=== PATIENT | female | born 1990 | race Caucasian/White ===

== ENCOUNTER 2022-06-14 08:37 | Emergency (ER) | payer OTHER, SELFPAY ==
[2022-06-14 08:49] VITALS: BP 97/39; PULSE 90; RESP 18; TEMP 36.6; O2SAT 98
--- NOTE | 2022-06-14 09:27 | ED.URI ---
HPI - URI/Sore Throat General Chief Complaint: Upper Respiratory Infection Stated Complaint: Ear Pain/Congestion/Cough Time Seen by Provider: 06/14/22 09:27 Source: patient, RN notes reviewed and old records reviewed Mode of arrival: ambulatory Limitations: no limitations History of Present Illness HPI Narrative: 32-year-old female who presents to [facility] with complaints of 1-1/2-2 weeks duration ear pain, congestion cough with sinus congestion and drainage. Patient reports she is taking DayQuil NyQuil some Tylenol and also Excedrin for her discomfort patient has not been COVID vaccinated nor has she had flu shot, denies any body aches or acute fevers.Patient reports that she has not taken any Claritin, or Zyrtec, or any Mucinex. MD elicited complaint: cough, rhinorrhea, nasal congestion and other (ear pain) Pertinent past history: seasonal allergies Pain scale (0-10): 5 Treatments prior to arrival: acetaminophen and cold medicine Related Data Allergies Allergy/AdvReac Type Severity Reaction Status Date / Time banana Allergy Mild Other Verified 06/14/22 09:16 egg Allergy Mild Other Verified 06/14/22 09:16 Review of Systems Review of Systems: CONSTITUTIONAL: Denies malaise, chills, sweats, or fever. EYES: Denies visual changes, redness, or discharge. ENT: Reports rhinorrhea, congestion, sinus pain, bilateral otalgia, positive sore throat. CARDIOVASCULAR: Denies chest pain, palpitations, or edema. RESPIRATORY: Reports cough.? Denies dyspnea. GASTROINTESTINAL: Denies abdominal pain, nausea, vomiting, diarrhea SKIN: Denies rash or itching. MUSCULOSKELETAL: Denies myalgia. NEUROLOGIC: Denies headache. All systems reviewed & are unremarkable except as noted in HPI and below [facility] Past Medical History Medical History (Updated 06/15/22 @ 00:00 by David Brasher) Seasonal allergies Surgical History Surgical History (Updated 06/14/22 @ 09:40 by Trinity Cordova NP) History of surgical removal of ganglion cyst [place] teeth extracted Social History Social History (Updated 06/14/22 @ 09:39 by Trinity Cordova NP) Smoking status: Current some day smoker Tobacco type: e-cigarettes/vaping Alcohol intake: current Alcohol use details: Social Substance use type: does not use Living arrangements: with family Gender identity (if verbalized by the patient): Female Comments At time of signature, agree with nursing past medical, surgical, social and family history. There is no relevant family history pertinent to the presenting complaint Exam Narrative: GENERAL: Well-appearing, well-nourished, and in no acute distress. HEAD: Normocephalic EYES: PERRLA, conjunctivae clear ENT: Nares clear, turbinates edematous and erythematous, clear discharge. Mucous membranes moist. TM pearly vizcarra with dull light reflex bilaterally; no tragal tenderness. Oropharynx erythematous without lesions. Tonsils red and enlarged and without exudate, no drooling, no hoarseness, no trismus, uvula midline.post nasal drainage NECK: Supple. No lymphadenopathy CHEST: Clear to auscultation, breath sounds equal. No wheezing, rhonchi, rales, or stridor. No respiratory distress, speaks in full sentences.cough noted with SAO2 98% on room air HEART: Regular rate and rhythm. No murmur heard. SKIN: Warm, dry, no rash. NEURO: Alert and oriented x3. PSYCH: Normal mood and affect Course Course Emergency Course: Patient is aware of diagnosis, understands and agrees to treatment plan.? Anticipatory guidance given.? Patient agrees to follow-up as directed and is aware of reasons to seek care at the emergency department. Portions of this record may have been created with voice recognition software Level of Care: Express Care Visit Vital Signs Vital signs: Vital Signs Temperature 36.6 C 06/14/22 08:49 Pulse Rate 90 06/14/22 08:49 Respiratory Rate 18 06/14/22 08:49 Blood Pressure 97/39 L 06/14/22 08:4
== END 2022-06-14 09:55 | disposition home or self-care (01) ==
PROVIDERS: Emergency Provider Registered Nurse
DX: J32.9 Chronic sinusitis, unspecified (principal); J02.9 Acute pharyngitis, unspecified; F17.290 Nicotine dependence, other tobacco product, uncomplicated
CPT/HCPCS: 87081; 87880; 99203; G0463

== ENCOUNTER 2022-09-08 15:40 | Emergency (ER) | payer OTHER, SELFPAY ==
[2022-09-08 15:46] VITALS: BP 125/79; PULSE 89; RESP 20; TEMP 36.8; O2SAT 96
--- NOTE | 2022-09-08 16:09 | ED.URI ---
HPI - URI/Sore Throat General Chief Complaint: Upper Respiratory Infection Stated Complaint: Cough/Sinus Congestion Time Seen by Provider: 09/08/22 16:09 Source: patient and RN notes reviewed Mode of arrival: ambulatory Limitations: no limitations History of Present Illness HPI Narrative: 32-year-old female presented for complaint of cough and sinus pressure for 3 weeks. Endorses a short improvement last week. She has been using inhaler without significant improvement. Endorses a time she feels shortness of breath and wheezing related to the cough. Also reports rib pain and facial pain when coughing. She denies chest pain, nausea, vomiting, diarrhea, fevers or chills. She denies sick contacts. MD elicited complaint: cough Related Data Allergies Allergy/AdvReac Type Severity Reaction Status Date / Time banana Allergy Mild Other Verified 09/08/22 15:57 egg Allergy Mild Other Verified 09/08/22 15:57 Review of Systems Review of Systems: CONSTITUTIONAL: Denies malaise, chills, sweats, fever EYES: Denies visual changes, redness, or discharge ENT: Reports rhinorrhea, congestion, sinus pain, otalgia CARDIOVASCULAR: Denies chest pain, palpitations, edema RESPIRATORY: Reports cough, dyspnea GASTROINTESTINAL: Denies abdominal pain, nausea, vomiting, diarrhea SKIN: Denies rash or itching MUSCULOSKELETAL: Denies myalgia NEUROLOGIC: Reports headache PMFSH Past Medical History Medical History Seasonal allergies Surgical History Surgical History History of surgical removal of ganglion cyst [place] teeth extracted Social History Social History Smoking status: Current some day smoker Tobacco type: e-cigarettes/vaping Alcohol intake: current Alcohol use details: Social Substance use type: does not use Living arrangements: with family Gender identity (if verbalized by the patient): Female Exam Narrative: GENERAL: mildly Ill-appearing, nontoxic no acute distress. HEAD: Normocephalic EYES: PERRLA, conjunctivae clear ENT: Mucous membranes moist. Maxillary pressure with palpation. TMs pearly vizcarra with dull light reflex bilaterally; no tragal tenderness. Oropharynx erythematous without lesions or exudate NECK: Supple. No lymphadenopathy CHEST: Clear to auscultation, breath sounds equal. No wheezing, rhonchi, rales, or stridor. No respiratory distress, speaks in full sentences. HEART: Regular rate and rhythm. No murmur heard. SKIN: Warm, dry, no rash. NEURO: Alert and oriented x3. PSYCH: Normal mood and affect Course Course Emergency Course: Patient is aware of diagnosis, understands and agrees to treatment plan. Anticipatory guidance given. Patient agrees to follow-up as directed and is aware of reasons to seek care at the emergency department. Portions of this record may have been created with voice recognition software Level of Care: Express Care Visit Vital Signs Vital signs: Vital Signs Temperature 98.2 F 09/08/22 15:46 Pulse Rate 89 09/08/22 15:46 Respiratory Rate 20 09/08/22 15:46 Blood Pressure 125/79 09/08/22 15:46 Pulse Oximetry 96 09/08/22 15:46 Oxygen Delivery Room Air 09/08/22 15:46 Temperature 98.2 F 09/08/22 15:46 Pulse Rate 89 09/08/22 15:46 Respiratory Rate 20 09/08/22 15:46 Blood Pressure 125/79 09/08/22 15:46 Pulse Oximetry 96 09/08/22 15:46 Oxygen Delivery Room Air 09/08/22 15:46 reviewed MDM - URI/Sore Throat MDM Narrative Medical decision making narrative: Advised supportive measures and signs/symptoms to go to the ER. Pt is appropriate for outpt treatment and f/u. Differential Diagnosis Differential diagnosis: Likely upper respiratory infection, sinusitis and viral infection Discharge Plan Discharge Clinical Impression: Upper respiratory infection
== END 2022-09-08 16:20 | disposition home or self-care (01) ==
PROVIDERS: Emergency Provider Nurse Practitioner Family
DX: J06.9 Acute upper respiratory infection, unspecified (principal); F17.290 Nicotine dependence, other tobacco product, uncomplicated
CPT/HCPCS: 99213; G0463

== ENCOUNTER 2023-11-25 14:44 | Outpatient (CLI) | payer OTHER, SELFPAY ==
--- NOTE | ~2023-11-25 | US_ITS ---
EXAMINATION: US OB <=14 wk fetus w TV DATE: 11/25/2023 15:11 INDICATION: Amenorrhea TECHNIQUE: Real-time pelvic ultrasound utilizing both a transvaginal and transabdominal probe was pe rformed. The interpreting radiologist was not present for the study. COMPARISON: None. FINDINGS: The uterus measures 11.5 x 5.6 x 6.9 cm. There is an intrauterine gestational sac. A 6 mm yolk sac a nd pole are identified. The crown rump length measures 1.8 cm, which correlates with an estimat ed gestational age of 8 weeks and 2 days. heart motion is identified measuring 165 beats per mi nute (bpm) by M-mode Doppler. The right ovary measures 3.7 x 2.6 x 3.0 cm. The left ovary measures 3.5 x 2.6 x 2.7 cm. There is no free fluid in the pelvis. IMPRESSION: 1. Single living fetus with heart rate of 165 bpm. 2. Gestational age by ultrasound of 8 weeks 2 day(s) +/- 5 day(s) with ultrasound estimated date of delivery (SONU) of 07/04/2024. Reviewed, dictated and finalized at location A. IMPRESSION: 1. Single living fetus with heart rate of 165 bpm. 2. Gestational age by ultrasound of 8 weeks 2 day(s) +/- 5 day(s) with ultraso und estimated date of delivery (SONU) of 07/04/2024.
== END 2023-11-25 14:45 ==
LOC: MICIMG 14:45
PROVIDERS: PCP Obstetrics & Gynecology; Visit Provider Obstetrics & Gynecology
DX: N91.2 Amenorrhea, unspecified (principal); Z3A.08 8 weeks gestation of pregnancy
CPT/HCPCS: 76801; 76817

== ENCOUNTER 2023-12-04 10:36 | Outpatient (CLI) | payer OTHER, SELFPAY ==
[2023-12-04 12:14] LABS: Basophils Percent Auto 0.4 % (0.2-1.2); Eosinophils Absolute Auto 0.2 K/mm3 (0-0.3); Eosinophils Percent Auto 2.4 % (0-4.4); Hematocrit 42.5 % (37.0-47.0); Hemoglobin 14.3 g/dL (12.0-15.0); Immature Granulocyte Absolute 0.02 K/mm3 (0.00-0.031); Immature Granulocyte Percent A 0.2 % (0-0.5); Lymphocytes Absolute Auto 1.81 K/mm3 (0.9-3.2); Lymphocytes Percent Auto 18.8 % (18.3-44.2); Mean Corpuscular HGB Conc 33.6 g/dl (32-36); Mean Corpuscular Volume 89.1 fl (80-100); Mean Platelet Volume 9.8 fl (7.4-10.4); Monocytes Absolute Auto 0.5 K/mm3 (0.1-0.6); Monocytes Percent Auto 5.1 % (2.6-8.5); Neutrophils Percent Auto 73.1 % (45.5-73.1); Platelet Count Result 291 k/mm3 (150-375); Red Blood Count 4.77 M/mm3 (4.2-5.4); Red Cell Distribution Width 13.1 % (11.5-14.5); White Blood Count 9.6 K/mm3 (4.5-10.0)
[2023-12-04 12:19] LABS: Glucose 1 Hour PP 50gm Dose 88 mg/dL
[2023-12-04 13:05] LABS: Hepatitis B Surface Antigen Negative (Negative); Rubella IgG Antibody 12.2 IU/ML
[2023-12-04 13:10] LABS: HIV 1/2 Ab P24 Ag Result Negative (Negative)
[2023-12-07 11:51] LABS: Rapid Plasma Reagin Non-Reactive (NonReactive)
[2023-12-07 12:02] LABS: CMV IgG Antibody <0.60 U/mL
== END 2023-12-04 10:37 | disposition home or self-care (01) ==
LOC: ANHLAB 10:37
PROVIDERS: PCP Obstetrics & Gynecology; Visit Provider Obstetrics & Gynecology
DX: N91.2 Amenorrhea, unspecified (principal); E66.9 Obesity, unspecified
CPT/HCPCS: 36415; 82947; 84702; 85025; 86592; 86644; 86703; 86747; 86762; 86787; 86850; 86900; 86901; 87086; 87088; 87340; G0432

== ENCOUNTER 2024-04-13 09:16 | Outpatient (CLI) | payer MEDICAID, SELFPAY ==
[2024-04-13 11:18] LABS: Basophils Percent Auto 0.3 % (0.2-1.2); Eosinophils Absolute Auto 0.3 K/mm3 (0-0.3); Eosinophils Percent Auto 2.1 % (0-4.4); Hematocrit 38.6 % (37.0-47.0); Immature Granulocyte Percent A 0.8 % (0-0.5); Lymphocytes Absolute Auto 1.58 K/mm3 (0.9-3.2); Lymphocytes Percent Auto 12.7 % (18.3-44.2); Mean Corpuscular HGB Conc 33.7 g/dl (32-36); Mean Corpuscular Hemoglobin 30.3 pg (26-34); Mean Platelet Volume 10.7 fl (7.4-10.4); Monocytes Absolute Auto 0.5 K/mm3 (0.1-0.6); Neutrophils Percent Auto 80.1 % (45.5-73.1); Platelet Count Result 255 k/mm3 (150-375); Red Blood Count 4.29 M/mm3 (4.2-5.4); Red Cell Distribution Width 13.4 % (11.5-14.5); White Blood Count 12.5 K/mm3 (4.5-10.0)
[2024-04-13 11:38] LABS: Glucose 1 Hour PP 50gm Dose 107 mg/dL
[2024-04-13 12:20] LABS: HIV 1/2 Ab P24 Ag Result Negative (Negative)
[2024-04-13 13:37] LABS: Rapid Plasma Reagin Non-Reactive (NonReactive)
== END 2024-04-13 09:17 | disposition home or self-care (01) ==
LOC: ANHLAB 09:18
PROVIDERS: PCP Physician Assistant; Visit Provider Obstetrics & Gynecology
DX: Z34.90 Encounter for supervision of normal pregnancy, unspecified, unspecified trimester (principal)
CPT/HCPCS: 36415; 82947; 85025; 86592; 86703; G0432

== ENCOUNTER 2024-05-18 10:44 | Outpatient (CLI) | payer OTHER, SELFPAY ==
[2024-05-18 11:07] VITALS: BP 117/88; PULSE 107
[2024-05-18 11:16] VITALS: BP 104/53; PULSE 97
[2024-05-18 11:19] LABS: Basophils Percent Auto 0.3 % (0.2-1.2); Eosinophils Absolute Auto 0.2 K/mm3 (0-0.3); Eosinophils Percent Auto 1.4 % (0-4.4); Hematocrit 38.4 % (37.0-47.0); Immature Granulocyte Percent A 0.7 % (0-0.5); Lymphocytes Absolute Auto 1.71 K/mm3 (0.9-3.2); Mean Corpuscular HGB Conc 33.9 g/dl (32-36); Mean Corpuscular Hemoglobin 30.2 pg (26-34); Mean Corpuscular Volume 89.3 fl (80-100); Mean Platelet Volume 10.6 fl (7.4-10.4); Monocytes Absolute Auto 0.8 K/mm3 (0.1-0.6); Monocytes Percent Auto 5.4 % (2.6-8.5); Neutrophils Absolute Auto 11.4 K/mm3 (1.3-6.7); Neutrophils Percent Auto 80.2 % (45.5-73.1); Platelet Count Result 243 k/mm3 (150-375); Red Cell Distribution Width 13.1 % (11.5-14.5); White Blood Count 14.2 K/mm3 (4.5-10.0)
[2024-05-18 11:28] LABS: Add Urine Microscopic? YES; Alanine Aminotransferase 60 U/L (6-35); Albumin Level 3.6 g/dL (3.5-5.1); Alkaline Phosphatase 159 U/L (38-126); Anion Gap 9 mmol/L (4-12); Appearance Urine Cloudy (Clear); Aspartate Amino Transferase 42 U/L (14-36); Bacteria Urine Rare /hpf; Bilirubin Urine Negative (Negative); Bilirubin,Total 0.3 mg/dL (0.2-1.3); Blood Urea Nitrogen 7 mg/dL (7-17); Blood Urine Negative (Negative); Calcium 8.7 mg/dL (8.4-10.2); Carbon Dioxide 19 mmol/L (22-30); Chloride 105 mmol/L (98-107); Color Urine Yellow (Yellow); Estimated Glomerular Filt Rate > 60; Glucose 103 mg/dL (65-110); Glucose Urine UA Negative (Negative); Ketones Urine Negative (Negative); Leukocyte Esterase Ur 2+ LEU/UL (Negative); Nitrate Urine Negative (Negative); Non Pathogenic Casts 0-2; Potassium 4.1 mmol/L (3.4-5.0); Protein Urine Negative (Negative); RBC Urine 0-2 /hpf (0-2); Sodium 133 mmol/L (137-145); Specific Grav Ur 1.013 (1.001-1.035); Squamous Epithelial Cell Urine Moderate /hpf (Few); Uric Acid 4.1 mg/dL (2.5-7.5); Urobilinogen Urine 0.2 mg/dL (<2.0); WBC Urine 21-50 /hpf (0-3)
[2024-05-18 11:30] VITALS: BP 109/69; PULSE 92
[2024-05-18 11:45] VITALS: BP 117/81; PULSE 97
[2024-05-18 12:00] LABS: Creatinine Urine 75.3 mg/dL; Total Protein Urine Random 6 mg/dL; Ur Ttl Prot Creatinine Ratio 0.08 mg/mg (0-0.20)
[2024-05-18 12:12] VITALS: BP 109/69; PULSE 97
[2024-05-18 12:19] VITALS: BP 117/88; PULSE 97
--- NOTE | 2024-05-18 12:20 | PC.NURSE ---
1211: [facility] OB, Dr. Sorensen in department. RN reviewed patient's blood pressure and lab results. orders to discharge patient home with precautions.
== END 2024-05-18 12:23 ==
LOC: ANHOBOP 10:49 → ANHOBPP 10:50
PROVIDERS: PCP Physician Assistant; Visit Provider Obstetrics & Gynecology
DX: O13.9 Gestational [pregnancy-induced] hypertension without significant proteinuria, unspecified trimester (principal); Z3A.00 Weeks of gestation of pregnancy not specified
CPT/HCPCS: 36415; 59025; 80053; 82570; 84156; 84550; 85025; 99199

== ENCOUNTER 2024-05-26 10:41 | Observation (INO) | payer OTHER, SELFPAY ==
[2024-05-26] VITALS (121 sets, daily range): BP systolic 86–126; BP diastolic 60–105; PULSE 68–115; RESP 16; TEMP 36.3–36.7; O2SAT 95–100; BMI 44.1
--- NOTE | 2024-05-26 10:41 | OBADM ---
This patient, Shaneka Rowe, admitted to the OB room OB Post 115 for observation. Patient/family oriented to hospital policies and general routines including ID bracelet, bed and alarms, visiting hours, pain management, procedures, bathroom and other care routines, personal items, smoking policy, room service/diet, and visiting hours. Patient/Family are encouraged to report perceived risks to care and to ask questions if they do not understand what they are told or what they should do.
[2024-05-26 11:19] LABS: Basophils Percent Auto 0.3 % (0.2-1.2); Eosinophils Absolute Auto 0.1 K/mm3 (0-0.3); Eosinophils Percent Auto 0.9 % (0-4.4); Hematocrit 39.7 % (37.0-47.0); Hemoglobin 13.4 g/dL (12.0-15.0); Immature Granulocyte Absolute 0.14 K/mm3 (0.00-0.031); Lymphocytes Absolute Auto 1.68 K/mm3 (0.9-3.2); Lymphocytes Percent Auto 11.9 % (18.3-44.2); Mean Corpuscular HGB Conc 33.8 g/dl (32-36); Mean Corpuscular Hemoglobin 30.1 pg (26-34); Mean Corpuscular Volume 89.2 fl (80-100); Mean Platelet Volume 11.1 fl (7.4-10.4); Monocytes Absolute Auto 0.7 K/mm3 (0.1-0.6); Neutrophils Absolute Auto 11.4 K/mm3 (1.3-6.7); Neutrophils Percent Auto 80.9 % (45.5-73.1); Platelet Count Result 240 k/mm3 (150-375); Red Blood Count 4.45 M/mm3 (4.2-5.4); Red Cell Distribution Width 12.8 % (11.5-14.5); White Blood Count 14.1 K/mm3 (4.5-10.0)
[2024-05-26 11:27] LABS: Add Urine Microscopic? YES; Appearance Urine Cloudy (Clear); Bacteria Urine Rare /hpf; Bilirubin Urine Negative (Negative); Blood Urine Negative (Negative); Color Urine Dark Yellow (Yellow); Glucose Urine UA Negative (Negative); Ketones Urine Trace mg/dL (Negative); Leukocyte Esterase Ur 2+ LEU/UL (Negative); Nitrate Urine Negative (Negative); Protein Urine Negative (Negative); RBC Urine 0-2 /hpf (0-2); Specific Grav Ur 1.023 (1.001-1.035); Squamous Epithelial Cell Urine Moderate /hpf (Few); pH Urine 5.5 (5.0-9.0)
[2024-05-26 11:30] LABS: Prothrombin Time 13.5 Seconds (11.1-14.7)
[2024-05-26 11:32] LABS: Partial Thromboplastin Time 24.5 Seconds (22.3-36.8)
--- NOTE | 2024-05-26 12:10 | PC.NURSE ---
Order from Dr. Luis received for monitoring to be discontinued.
[2024-05-26 12:15] LABS: Alanine Aminotransferase 161 U/L (6-35); Albumin Level 3.6 g/dL (3.5-5.1); Alkaline Phosphatase 177 U/L (38-126); Anion Gap 7 mmol/L (4-12); Aspartate Amino Transferase 118 U/L (14-36); Bilirubin,Total 0.5 mg/dL (0.2-1.3); Blood Urea Nitrogen 8 mg/dL (7-17); Calcium 9.1 mg/dL (8.4-10.2); Carbon Dioxide 17 mmol/L (22-30); Chloride 109 mmol/L (98-107); Estimated Glomerular Filt Rate > 60; Glucose 110 mg/dL (65-110); Potassium 3.8 mmol/L (3.4-5.0); Sodium 133 mmol/L (137-145); Uric Acid 5.3 mg/dL (2.5-7.5)
[2024-05-26 14:50] LABS: Influenza A QL RT-PCR Negative (Negative); Influenza B QL RT-PCR Negative (Negative); RSV RNA, RT-PCR Negative (Negative); SARS-CoV-2 RNA PCR Negative (Negative)
[2024-05-26] MEDS: ACETAMINOPHEN 325 MG TABLET 650 MG PO (17:51)
--- NOTE | 2024-05-26 20:32 | P.HP_ITS ---
H&P: HPI History of Present Illness Date/Time: 05/26/24 13:32 Chief Complaint: elevated liver enzymes Narrative: Shaneka is a 34yo @ 34.1wks who presents for admission. She has been undergoing routine care; last week 05/18/24 she was found to have a mild range diastolic BP in the 90s; and she endorsed a SANDOVAL. NST/BPP were reassuring, her P/C ratio was 0.08, BPs normal, but her liver enzymes were elevated. She re-presented for additional testing 1 week later 05/25/24 and everything was once again normal, except for her liver enzymes were noted to be even more elevated. She was seen in office today, and reports worsening SANDOVAL and just feeling unwell and was sent for admission. Liver enzymes were once again noted to be rising again today. [facility] was contacted for consult regarding her care. Shaneka does report mild itching on the soles of her feet after a shower. She did have a URI about 2 weeks ago; denies any fevers, rashes. She does have a 6yo daughter who also has a URI/strep. She denies any RUQ pain, CP, SOB. She reports eating and using the restroom normally. She reprots good movement. No ctx, vb, or LOF. Her pregnanacy is complicated by: - Obesity; BMI 42-- ASA 81mg, [facility] - Previous x1; for repeat + salpingectomy, [place] sterilization signed 03/22/24 - h/o migraines/headaches - Elevated liver enzymes?? Review of Systems Constitutional: Constitutional: Denies chills, Denies fever(s), Reports headache(s), Reports malaise and Denies poor appetite Eyes: Eyes: Denies change in vision ENT: Reports headache(s) Cardiovascular: Cardiovascular: Denies chest pain and Denies dyspnea Respiratory: Respiratory: Denies dyspnea Gastrointestinal: Gastrointestinal: Denies abdominal pain and Denies change in stool character Genitourinary: Genitourinary: Denies abnormal vaginal bleeding and Denies vaginal discharge Musculoskeletal: Musculoskeletal: Reports as per HPI Integumentary/Breasts: Skin/Breast: Denies rash Neurologic: Reports headache(s) Psychiatric: Psychiatric: Denies anxiety and Denies depression [facility] Past Medical History Medical History History of PCOS Seasonal allergies Surgical History Surgical History Delivery by section History of surgical removal of ganglion cyst [place] teeth extracted Family History Family History Mother Endometriosis Hypertension Grandparent Endometriosis Diabetes mellitus Social History Social History Smoking status: Former smoker Tobacco type: e-cigarettes/vaping Alcohol intake: never Substance use: never Substance use type: does not use Do You Feel Safe in your Home?: Yes Lack of Transportation: No Lack of Food: Never True Current Housing: Decline to Answer Concerned About Future Housing: Decline to Answer Difficulty Paying Gas/Electric Bills: Decline to Answer Difficulty Paying for Meds: Decline to Answer Currently Unemployed: Decline to Answer Education: Decline to Answer Difficulty w/ Childcare or Family Care: Decline to Answer Living arrangements: with family Occupation/Education: other Additional occupation/education comments: stay at home mom Gender identity (if verbalized by the patient): Female Sexual Orientation (if Verbalized by the Patient): Straight or Heterosexual Meds Home Medications and Allergies Home Medications Medication Instructions Recorded Confirmed Type levocetirizine 5 mg tablet (Xyzal) 5 mg PO DAILY 03/22/24 05/26/24 History calcium carbonate (Tums) 200 mg PO BID 04/20/24 05/26/24 History albuterol sulfate 90 mcg/actuation 2 inh inhalation Q4H PRN shortness 05/04/24 05/26/24 Rx aerosol inhaler of breath or wheezing #6.7 grams famotidine 20 mg tablet (Pepcid) 20 mg PO DAILY 05/18/24 05/26/24 History Allergies Allergy/AdvReac Type Severity Reaction Status Date / Time basil Allergy Severe Swelling Verified 05/26/24 09:45 of Lip/Tongue/Throat banana Allergy Mild Other Verified 05/26/24 09:45 egg Allergy Mild Other Verified 05/26/24 09:45 Vital Signs Vital Signs - 24 hr 05/26/24 11:16 05/26/24 11:20 05/26/24 11:25 Pulse Rate 112 H 105 H Blood Pressure 86/60 L 112/83 Blood Pressure [Left Arm] Pulse Oximetry 98 97 Oxygen Delivery 05/26/24 11:30 05/26/24 11:31 05/26/24 11:35 Pulse Rate 99 Blood Pressure 125/82 Blood Pressure [Left Arm] Pulse Oximetry 97 96 Oxygen Delivery 05/26/24 11:40 05/26/24 11:45 05/26/24 11:46 Pulse Rate 107 H Blood Pressure 120/72 Blood Pressure [Left Arm] Pulse Oximetry 96 96 Oxygen Delivery 05/26/24 11:50 05/26/24 11:55 05/26/24 12:00 Pulse Rate Blood Pressure Blood Pressure [Left Arm] Pulse Oximetry 96 96 97 Oxygen Delivery 05/26/24 12:01 05/26/24 12:05 05/26/24 12:10 Pulse Rate 86 Blood Pressure 121/78 Blood Pressure [Left Arm] Pulse Oximetry 98 96 Oxygen Delivery 05/26/24 12:15 05/26/24 12:20 05/26/24 12:25 Pulse Rate Blood Pressure Blood Pressure [Left Arm] Pulse Oximetry 96 96 97 Oxygen Delivery 05/26/24 12:30 05/26/24 12:35 05/26/24 12:40 Pulse Rate Blood Pressure Blood Pressure [Left Arm] Pulse Oximetry 98 99 96 Oxygen Delivery 05/26/24 12:45 05/26/24 12:50 05/26/24 12:55 Pulse Rate Blood Pressure Blood Pressure [Left Arm] Pulse Oximetry 99 96 99 Oxygen Delivery 05/26/24 13:00 05/26/24 13:01 05/26/24 13:05 Pulse Rate 82 Blood Pressure 125/79 Blood Pressure [Left Arm] Pulse Oximetry 99 98 Oxygen Delivery 05/26/24 13:10 05/26/24 13:15 05/26/24 13:20 Pulse Rate Blood Pressure Blood Pressure [Left Arm] Pulse Oximetry 98 98 98 Oxygen Delivery 05/26/24 13:25 05/26/24 13:30 05/26/24 13:35 Pulse Rate Blood Pressure Blood Pressure [Left Arm] Pulse Oximetry 98 97 99 Oxygen Delivery 05/26/24 13:36 05/26/24 13:41 05/26/24 13:46 Pulse Rate Blood Pressure Blood Pressure [Left Arm] Pulse Oximetry 99 97 98 Oxygen Delivery 05/26/24 13:51 05/26/24 13:56 05/26/24 14:01 Pulse Rate Blood Pressure Blood Pressure [Left Arm] Pulse Oximetry 99 98 97 Oxygen Delivery 05/26/24 14:08 05/26/24 14:13 05/26/24 14:18 Pulse Rate Blood Pressure Blood Pressure [Left Arm] Pulse Oximetry 97 96 97 Oxygen Delivery 05/26/24 14:23 05/26/24 14:28 05/26/24 14:33 Pulse Rate Blood Pressure Blood Pressure [Left Arm] Pulse Oximetry 98 98 97 Oxygen Delivery 05/26/24 14:38 05/26/24 14:43 05/26/24 14:48 Pulse Rate Blood Pressure Blood Pressure [Left Arm] Pulse Oximetry 98 98 97 Oxygen Delivery 05/26/24 14:53 05/26/24 14:58 05/26/24 15:01 Pulse Rate 92 Blood Pressure 124/105 H Blood Pressure [Left Arm] Pulse Oximetry 99 98 Oxygen Delivery 05/26/24 15:03 05/26/24 15:08 05/26/24 15:13 Pulse Rate Blood Pressure Blood Pressure [Left Arm] Pulse Oximetry 97 98 98 Oxygen Delivery 05/26/24 15:18 05/26/24 15:23 05/26/24 15:28 Pulse Rate Blood Pressure Blood Pressure [Left Arm] Pulse Oximetry 96 97 96 Oxygen Delivery 05/26/24 15:33 05/26/24 15:38 05/26/24 15:43 Pulse Rate Blood Pressure Blood Pressure [Left Arm] Pulse Oximetry 98 97 97 Oxygen Delivery 05/26/24 15:48 05/26/24 15:53 05/26/24 15:58 Pulse Rate Blood Pressure Blood Pressure [Left Arm] Pulse Oximetry 98 97 97 Oxygen Delivery 05/26/24 16:01 05/26/24 16:06 05/26/24 16:11 Pulse Rate 92 Blood Pressure 123/76 Blood Pressure [Left Arm] Pulse Oximetry 98 96 Oxygen Delivery 05/26/24 16:16 05/26/24 16:21 05/26/24 16:26 Pulse Rate Blood Pressure Blood Pressure [Left Arm] Pulse Oximetry 97 96 95 Oxygen Delivery 05/26/24 16:31 05/26/24 16:36 05/26/24 16:41 Pulse Rate Blood Pressure Blood Pressure [Left Arm] Pulse Oximetry 96 95 96 Oxygen Delivery 05/26/24 16:46 05/26/24 16:51 05/26/24 16:56 Pulse Rate Blood Pressure Blood Pressure [Left Arm] Pulse Oximetry 95 96 96 Oxygen Delivery 05/26/24 17:01 05/26/24 17:06 05/26/24 17:11 Pulse Rate 88 Blood Pressure 117/67 Blood Pressure [Left Arm] Pulse Oximetry 96 96 96 Oxygen Delivery 05/26/24 17:16 05/26/24 17:21 05/26/24 17:26 Pulse Rate Blood Pressure Blood Pressure [Left Arm] Pulse Oximetry 96 98 96 Oxygen Delivery 05/26/24 17:31 05/26/24 17:39 05/26/24 17:44 Pulse Rate Blood Pressure Blood Pressure [Left Arm] Pulse Oximetry 98 100 98 Oxygen Delivery 05/26/24 17:49 05/26/24 17:54 05/26/24 17:59 Pulse Rate Blood Pressure Blood Pressure [Left Arm] Pulse Oximetry 97 96 98 Oxygen Delivery 05/26/24 18:01 05/26/24 18:04 05/26/24 18:04 Pulse Rate 89 Blood Pressure 121/76 Blood Pressure [Left Arm] Pulse Oximetry 98 98 Oxygen Delivery 05/26/24 18:09 05/26/24 18:14 05/26/24 18:19 Pulse Rate Blood Pressure Blood Pressure [Left Arm] Pulse Oximetry 97 98 98 Oxygen Delivery 05/26/24 18:24 05/26/24 18:29 05/26/24 18:34 Pulse Rate Blood Pressure Blood Pressure [Left Arm] Pulse Oximetry 98 98 99 Oxygen Delivery 05/26/24 18:39 05/26/24 18:44 05/26/24 18:46 Pulse Rate Blood Pressure Blood Pressure [Left Arm] Pulse Oximetry 98 98 98 Oxygen Delivery 05/26/24 18:51 05/26/24 18:56 05/26/24 19:01 Pulse Rate Blood Pressure Blood Pressure [Left Arm] Pulse Oximetry 99 98 98 Oxygen Delivery 05/26/24 19:06 05/26/24 19:11 05/26/24 19:16 Pulse Rate Blood Pressure Blood Pressure [Left Arm] Pulse Oximetry 98 100 99 Oxygen Delivery 05/26/24 19:21 05/26/24 19:26 05/26/24 20:12 Pulse Rate Blood Pressure Blood Pressure [Left Arm] Pulse Oximetry 99 98 99 Oxygen Delivery 05/26/24 20:13 05/26/24 11:05 05/26/24 12:18 Pulse Rate 95 86 Blood Pressure 119/88 Blood Pressure [Left Arm] 121/78 Pulse Oximetry Oxygen Delivery Room Air Exam Const: General: cooperative, no acute distress and obese Nutritional Appearance: obese Orientation/consciousness: patient oriented x3 Resp: Effort & Inspection: normal respiratory effort Cardio: Rate: regular rate GI: GI Palp: No abdominal tenderness : Other: FHT's: 130's/ mod michael/ + accels/ no decels - cat 1 TOCO: no ctxs Membranes: intact Presentation: cephalic Skin: General skin exam: normal color Neuro: General: patient oriented x3 Extrem: General: normal to inspection Psych: Appearance: grossly normal Affect: normal affect Attitude: cooperative H&P: Results Labs Labs: Short CBC 05/26/24 Range/Units 10:53 WBC 14.1 H (4.5-10.0) K/mm3 Hgb 13.4 (12.0-15.0) g/dL Hct 39.7 (37.0-47.0) % Plt Count 240 (150-375) k/mm3 BMP 05/26/24 10:53 Sodium 133 L Potassium 3.8 Chloride 109 H Carbon Dioxide 17 L BUN 8 Creatinine 0.60 L Glucose 110 Calcium 9.1 Liver Function 05/26/24 Range/Units 10:53 Total Bilirubin 0.5 (0.2-1.3) mg/dL AST 118 H (14-36) U/L ALT 161 H (6-35) U/L Alkaline Phosphatase 177 H (38-126) U/L Albumin 3.6 (3.5-5.1) g/dL Urine 05/26/24 Range/Units 10:53 Urine Color Dark yellow (Yellow) Urine Appearance Cloudy H (Clear) Urine pH 5.5 (5.0-9.0) Ur Specific [place] 1.023 (1.001-1.035) Urine Protein Negative (Negative) mg/dL Urine Glucose (UA) Negative (Negative) mg/dL Assessment and Plan Assessment and plan (1) Transaminitis: Code(s): R74.01 - Elevation of levels of liver transaminase levels Status: Acute Plan - Admit overnight for monitoring of BP and labs - BP monitoring q4h overnight, q2h during day - NST qshift - Repeat CMP in the AM - M consulted and agreed with overnight monitoring; suspecting viral etiology over atypical pre-eclampsia as her BPs are normal and so is multiple urine P/C ratios - EBV, HSV, CMV viral studies ordered - hepatitis panel pending - covid, rsv, covid negative - RUQ US normal; mild hepatic steatosis (not expecting fatty liver of as her glucose is normal) - 24 hour protein collection pending - Bile acids pending - coags normal - Encouraged to consult GI if LFTs >200 - If everything stable/negative after 24 hours admission; [facility] recommends twice weekly NST/labs, weekly BPP, possible delivery at 37wks or if pre-eclampsia or other symptoms develop
[2024-05-26 20:50] LABS: Creatinine Urine 211.6 mg/dL; Total Protein Urine Random 10 mg/dL; Ur Ttl Prot Creatinine Ratio 0.05 mg/mg (0-0.20)
--- NOTE | 2024-05-26 22:29 | PC.NURSE ---
Called Dr. Luis, update on pt and right lower back pain tender to the touch. No medication orders at this time, orders received to try a heating pad.
[2024-05-27] VITALS (16 sets, daily range): BP systolic 124–133; BP diastolic 68–78; PULSE 82–111; RESP 16; TEMP 36.8; O2SAT 96–99; BMI 44.3
[2024-05-27 00:18] LABS: HAV RESULT Negative (Negative); Hepatitis B Core IgM Result Negative (Negative)
[2024-05-27 00:34] LABS: Hepatitis B Surface Antigen Negative (Negative); Hepatitis C Virus Antibody Negative (Negative)
[2024-05-27 05:45] LABS: Alanine Aminotransferase 160 U/L (6-35); Albumin Level 3.3 g/dL (3.5-5.1); Alkaline Phosphatase 152 U/L (38-126); Anion Gap 5 mmol/L (4-12); Aspartate Amino Transferase 114 U/L (14-36); Bilirubin,Total 0.5 mg/dL (0.2-1.3); Blood Urea Nitrogen 10 mg/dL (7-17); Calcium 8.6 mg/dL (8.4-10.2); Carbon Dioxide 24 mmol/L (22-30); Chloride 107 mmol/L (98-107); Estimated CRCL calculation 137 ml/min; Estimated Glomerular Filt Rate > 60; Glucose 84 mg/dL (65-110); Potassium 4.5 mmol/L (3.4-5.0); Sodium 136 mmol/L (137-145)
--- NOTE | 2024-05-27 06:51 | PC.NURSE ---
Report given to Tavon Valdez RN.
--- NOTE | 2024-05-27 08:34 | PM.OBPNVD ---
OB - PN: Subj Subjective Date/time seen: 05/27/24 08:34 Interval history: HD#2 No issues overnight. She continues to have a mild headache; had a dose of Tylenol-- 09/12. She has noticed some back pain on the right side. No dysuria. She denies any RUQ pain, CP, SOB. She reports eating and using the restroom normally. She reports good movement. No ctx, vb, or LOF. Her BPs have remained normal overnight. She is collecting her urine for 24 hours (ends of 1100). Her liver enzymes are stable today. OB - PN: Obj Data Labs 05/26/24 10:53 05/27/24 05:23 Labs: Laboratory Results - last 24 hr 05/26/24 05/26/24 05/27/24 10:53 13:54 05:23 WBC 14.1 H RBC 4.45 Hgb 13.4 Hct 39.7 MCV 89.2 MCH 30.1 MCHC 33.8 RDW 12.8 Plt Count 240 MPV 11.1 H Immature Gran % (Auto) 1.0 H Neut % (Auto) 80.9 H Lymph % (Auto) 11.9 L [place] % (Auto) 5.0 Eos % (Auto) 0.9 Baso % (Auto) 0.3 Lymph # (Auto) 1.68 [place] # (Auto) 0.7 H Eos # (Auto) 0.1 Baso # (Auto) 0.0 Abs Immat Gran (auto) 0.14 H Absolute Neuts (auto) 11.4 H Absolute Nucleated RBC 0.000 Nucleated RBC % 0.0 PT 13.5 INR 1.0 APTT 24.5 Sodium 133 L 136 L Potassium 3.8 4.5 Chloride 109 H 107 Carbon Dioxide 17 L 24 Anion Gap 7 5 BUN 8 10 Creatinine 0.60 L 0.60 L Estim Creat Clear Calc Not Reportable 137 Estimated GFR > 60 > 60 Glucose 110 84 Uric Acid 5.3 Calcium 9.1 8.6 Total Bilirubin 0.5 0.5 AST 118 H 114 H ALT 161 H 160 H Alkaline Phosphatase 177 H 152 H Total Protein 7.0 7.0 Albumin 3.6 3.3 L Urine Color Dark yellow Urine Appearance Cloudy H Urine pH 5.5 Ur Specific [place] [employer] 1.023 Urine Protein Negative Urine Glucose (UA) Negative Urine Ketones Trace H Ur Blood (Man) Negative Urine Nitrate Negative Urine Bilirubin Negative Urine Urobilinogen 1.0 Leukocyte Esterase Rfl 2+ H Urine RBC 0-2 Urine WBC 6-10 H Ur Squamous Epith Cells Moderate Urine Bacteria Rare Urine Casts 3-5 U Random Total Protein 10 Urine Creatinine 211.6 Protein/Creat Ratio 2 0.05 Hepatitis A IgM Ab Negative Hep Bs Antigen Negative Hep B Core IgM Ab Negative Hepatitis C Ab Screen Negative Influenza A (RT-PCR) Negative Influenza B (RT-PCR) Negative RSV (RT-PCR) Negative SARS-CoV-2 RNA (RT-PCR) Negative OB - PN A/P Assessment and Plan (1) Transaminitis: Code(s): R74.01 - Elevation of levels of liver transaminase levels Status: Acute (2) : Code(s): Z34.90 - Encounter for supervision of normal , unspecified, unspecified trimester Status: Acute Plan - Admitted overnight for monitoring of BP and labs-- BPs in normal range, labs stable this morning - BP monitoring q4h overnight, q2h during day - NST qshift, reassuring - [facility] consulted and agreed with overnight monitoring; suspecting viral etiology over atypical pre-eclampsia as her BPs are normal and so is multiple urine P/C ratios - EBV, HSV, CMV viral studies ordered--- PENDING - hepatitis panel: Negative - Influenze, rsv, covid: Negative - RUQ US: Normal, mild hepatic steatosis (not expecting fatty liver of as her glucose is normal) - 24 hour protein collection: PENDING, done at 1100 - Bile acids: Pending - Coags: Normal - Encouraged to consult GI if LFTs >200 - Urine culture 05/25/24: no growth - If everything stable/negative after 24 hours admission; [facility] recommends twice weekly NST/labs, weekly BPP, possible delivery at 37wks or earlier if pre-eclampsia or other symptoms develop-- for d/c this afternoon. Time Spent With Patient Time: Total time spent is greater than 50% in coordination of care (as documented) at patient's floor/unit and/or counseling patient: Review of Systems Constitutional: Constitutional: Denies chills, Denies fever(s), Reports headache(s), Denies malaise and Denies poor appetite Eyes: Eyes: Denies change in vision ENT: Reports headache(s) Cardiovascular: Cardiovascular: Denies chest pain and Denies dyspnea Respiratory: Respiratory: Denies dyspnea Gastrointestinal: Gastrointestinal: Denies abdominal pain and Denies change in stool character Genitourinary: Genitourinary: Denies abnormal vaginal bleeding and Denies vaginal discharge Musculoskeletal: Musculoskeletal: Reports as per HPI Integumentary/Breasts: Skin/Breast: Denies rash Neurologic: Reports headache(s) Psychiatric: Psychiatric: Denies anxiety and Denies depression Exam Const: General: cooperative, no acute distress and obese Nutritional Appearance: obese Orientation/consciousness: patient oriented x3 Resp: Effort & Inspection: normal respiratory effort Cardio: Rate: regular rate GI: GI Palp: No abdominal tenderness : Other: FHT's: 130's/ mod michael/ + accels/ no decels - cat 1 TOCO: no ctxs Membranes: intact Presentation: cephalic Skin: General skin exam: normal color Neuro: General: patient oriented x3 Extrem: General: normal to inspection Psych: Appearance: grossly normal Affect: normal affect Attitude: cooperative
--- NOTE | 2024-05-27 11:00 | PC.NURSE ---
24 hr urine completed.
[2024-05-27 13:10] LABS: Collection Time Urine 24 HOURS; Total Volume 24 Hour Urine 1400 ml
[2024-05-27 13:10] LABS: Total Volume 24 Hour Urine 1400 ml
[2024-05-27 13:11] LABS: Patient Weight 250 Lbs
[2024-05-27 13:34] LABS: Creatinine Clearance Urine 157.2 ml/min (75-125); Creatinine Urine 118.8 mg/dL
[2024-05-27 14:55] LABS: Total Protein Urine 24 Hr < 70 mg/24hr (28-141); Total Protein Urine Random < 5 mg/dL
[2024-05-27 17:28] LABS: CMV IgG Antibody <0.60 U/mL; CMV IgM Antibody <30.00 AU/mL
--- NOTE | 2024-05-27 19:36 | PC.NURSE ---
Dr. Luis in to see pt. has reviewed that labs that are back. 24 hr urine continues until 1100 today. Pt can be discharged to home after 24 hr urine is completed. Pt doesn't have to wait for results. Pt to have NST and repeat [facility] labs on Thursday and Thursday of next week.
[2024-05-29 16:38] LABS: EVB DNA,QN PCR Not Detected Log cps/mL (Not Detected); Epstein Barr Virus PCR Not Detected copies/mL (Not Detected)
--- NOTE | 2024-05-30 15:11 | PM.OBTRLD ---
OB - Triage/Final Diagnosis Visit Information Comments/Additional reasons for admission: I have assessed the risk for this patient, Shaneka Rowe, and determined that she would benefit from observation care. Evaluation Laboratory results: Laboratory Tests 05/26/24 05/26/24 05/27/24 10:53 13:54 05:23 WBC 14.1 H RBC 4.45 Hgb 13.4 Hct 39.7 MCV 89.2 MCH 30.1 MCHC 33.8 RDW 12.8 Plt Count 240 MPV 11.1 H Immature Gran % (Auto) 1.0 H Neut % (Auto) 80.9 H Lymph % (Auto) 11.9 L [place] % (Auto) 5.0 Eos % (Auto) 0.9 Baso % (Auto) 0.3 Lymph # (Auto) 1.68 [place] # (Auto) 0.7 H Eos # (Auto) 0.1 Baso # (Auto) 0.0 Abs Immat Gran (auto) 0.14 H Absolute Neuts (auto) 11.4 H Absolute Nucleated RBC 0.000 Nucleated RBC % 0.0 PT 13.5 INR 1.0 APTT 24.5 Sodium 133 L 136 L Potassium 3.8 4.5 Chloride 109 H 107 Carbon Dioxide 17 L 24 Anion Gap 7 5 BUN 8 10 Creatinine 0.60 L 0.60 L Estim Creat Clear Calc Not Reportable 137 Estimated GFR > 60 > 60 Glucose 110 84 Uric Acid 5.3 Calcium 9.1 8.6 Total Bilirubin 0.5 0.5 AST 118 H 114 H ALT 161 H 160 H Alkaline Phosphatase 177 H 152 H Total Protein 7.0 7.0 Albumin 3.6 3.3 L Urine Color Dark yellow Urine Appearance Cloudy H Urine pH 5.5 Ur Specific [place] 1.023 Urine Protein Negative Urine Glucose (UA) Negative Urine Ketones Trace H Ur Blood (Man) Negative Urine Nitrate Negative Urine Bilirubin Negative Urine Urobilinogen 1.0 Leukocyte Esterase Rfl 2+ H Urine RBC 0-2 Urine WBC 6-10 H Ur Squamous Epith Cells Moderate Urine Bacteria Rare Urine Casts 3-5 U Random Total Protein 10 Ur 24 Hour Volume Urine Creatinine 211.6 Creatinine Clearance Ur Total Protein 24 Hr Protein/Creat Ratio 2 0.05 CMV IgG Ab <0.60 CMV IgM Ab <30.00 EBV Source Whole blood EBV (Quant-PCR) Quant Not detected EBV DNA Quant PCR log10 Not detected Hepatitis A IgM Ab Negative Hep Bs Antigen Negative Hep B Core IgM Ab Negative Hepatitis C Ab Screen Negative HSV I Specific Ab 5.54 H HSV II Specific Ab <0.90 Influenza A (RT-PCR) Negative Influenza B (RT-PCR) Negative RSV (RT-PCR) Negative SARS-CoV-2 RNA (RT-PCR) Negative 05/27/24 05/27/24 11:52 11:53 WBC RBC Hgb Hct MCV MCH MCHC RDW Plt Count MPV Immature Gran % (Auto) Neut % (Auto) Lymph % (Auto) [place] % (Auto) Eos % (Auto) Baso % (Auto) Lymph # (Auto) [place] # (Auto) Eos # (Auto) Baso # (Auto) Abs Immat Gran (auto) Absolute Neuts (auto) Absolute Nucleated RBC Nucleated RBC % PT INR APTT Sodium Potassium Chloride Carbon Dioxide Anion Gap BUN Creatinine Estim Creat Clear Calc Estimated GFR Glucose Uric Acid Calcium Total Bilirubin AST ALT Alkaline Phosphatase Total Protein Albumin Urine Color Urine Appearance Urine pH Ur Specific [place] Urine Protein Urine Glucose (UA) Urine Ketones Ur Blood (Man) Urine Nitrate Urine Bilirubin Urine Urobilinogen Leukocyte Esterase Rfl Urine RBC Urine WBC Ur Squamous Epith Cells Urine Bacteria Urine Casts U Random Total Protein < 5 Ur 24 Hour Volume 1400 1400 Urine Creatinine 118.8 Creatinine Clearance 157.2 H Ur Total Protein 24 Hr < 70 Protein/Creat Ratio 2 CMV IgG Ab CMV IgM Ab EBV Source EBV (Quant-PCR) Quant EBV DNA Quant PCR log10 Hepatitis A IgM Ab Hep Bs Antigen Hep B Core IgM Ab Hepatitis C Ab Screen HSV I Specific Ab HSV II Specific Ab Influenza A (RT-PCR) Influenza B (RT-PCR) RSV (RT-PCR) SARS-CoV-2 RNA (RT-PCR) Final Diagnosis (1) Transaminitis: Code(s): R74.01 - Elevation of levels of liver transaminase levels Status: Acute
== END 2024-05-27 12:07 | disposition home or self-care (01) ==
PROVIDERS: Admitting Provider Obstetrics & Gynecology; Visit Provider Obstetrics & Gynecology
DX: O99.891 Other specified diseases and conditions complicating pregnancy (principal); R74.01 Elevation of levels of liver transaminase levels; Z3A.34 34 weeks gestation of pregnancy
CPT/HCPCS: 36415; 59025; 80053; 80074; 81001; 81050; 82542; 82570; 82575; 84156; 84550; 85025; 85610; 85730; 86644; 86645; 86695; 86696; 87086; 87637; A9270; G0378; G0379

== ENCOUNTER 2024-06-10 08:46 | Outpatient (RCR) | payer OTHER, SELFPAY ==
[2024-05-25 09:12] LABS: Basophils Absolute Auto 0.1 K/mm3 (0.0-0.1); Basophils Percent Auto 0.4 % (0.2-1.2); Eosinophils Absolute Auto 0.2 K/mm3 (0-0.3); Eosinophils Percent Auto 1.2 % (0-4.4); Hematocrit 39.2 % (37.0-47.0); Hemoglobin 13.1 g/dL (12.0-15.0); Immature Granulocyte Absolute 0.12 K/mm3 (0.00-0.031); Immature Granulocyte Percent A 0.8 % (0-0.5); Lymphocytes Absolute Auto 2.01 K/mm3 (0.9-3.2); Lymphocytes Percent Auto 13.9 % (18.3-44.2); Mean Corpuscular HGB Conc 33.4 g/dl (32-36); Mean Corpuscular Hemoglobin 29.8 pg (26-34); Mean Corpuscular Volume 89.3 fl (80-100); Mean Platelet Volume 10.8 fl (7.4-10.4); Monocytes Absolute Auto 0.8 K/mm3 (0.1-0.6); Monocytes Percent Auto 5.8 % (2.6-8.5); Neutrophils Absolute Auto 11.2 K/mm3 (1.3-6.7); Neutrophils Percent Auto 77.9 % (45.5-73.1); Platelet Count Result 245 k/mm3 (150-375); Red Blood Count 4.39 M/mm3 (4.2-5.4); Red Cell Distribution Width 12.8 % (11.5-14.5); White Blood Count 14.4 K/mm3 (4.5-10.0)
[2024-05-25 09:25] VITALS: BP 121/85; PULSE 120
[2024-05-25 09:27] LABS: Alanine Aminotransferase 123 U/L (6-35); Albumin Level 3.6 g/dL (3.5-5.1); Alkaline Phosphatase 171 U/L (38-126); Anion Gap 8 mmol/L (4-12); Aspartate Amino Transferase 102 U/L (14-36); Bilirubin,Total 0.4 mg/dL (0.2-1.3); Blood Urea Nitrogen 7 mg/dL (7-17); Calcium 8.7 mg/dL (8.4-10.2); Carbon Dioxide 20 mmol/L (22-30); Chloride 107 mmol/L (98-107); Estimated Glomerular Filt Rate > 60; Glucose 101 mg/dL (65-110); Potassium 3.9 mmol/L (3.4-5.0); Sodium 135 mmol/L (137-145); Uric Acid 5.6 mg/dL (2.5-7.5)
[2024-05-25 10:55] LABS: Add Urine Microscopic? YES; Appearance Urine Cloudy (Clear); Bacteria Urine Rare /hpf; Bilirubin Urine 1+ (Negative); Blood Urine Negative (Negative); Color Urine Dark Yellow (Yellow); Glucose Urine UA Negative (Negative); Ketones Urine 1+ mg/dL (Negative); Leukocyte Esterase Ur 1+ LEU/UL (Negative); Nitrate Urine Negative (Negative); Non Pathogenic Casts 0-2; Protein Urine Negative (Negative); RBC Urine 0-2 /hpf (0-2); Specific Grav Ur 1.024 (1.001-1.035); Squamous Epithelial Cell Urine Moderate /hpf (Few); pH Urine 5.5 (5.0-9.0)
[2024-05-25 11:36] LABS: Total Protein Urine Random < 5 mg/dL
[2024-05-25 11:37] LABS: Ur Ttl Prot Creatinine Ratio < 0.02 mg/mg (0-0.20)
--- NOTE | 2024-05-25 11:57 | PC.NURSE ---
1155: RN phoned Dr. Luis to report patient's lab results and right upper quad ultrasound. Orders to schedule patient next week for another NST, BPP, CBC, CMP, total protein and urine. OB stated her office will call the patient today to schedule an appointment tomorrow and that OB will notify MFM of patients results.
[2024-05-25 22:09] LABS: Alanine Aminotransferase 123 U/L (6-35); Albumin Level 3.4 g/dL (3.5-5.1); Alkaline Phosphatase 175 U/L (38-126); Aspartate Amino Transferase 104 U/L (14-36); Bilirubin,Total 0.4 mg/dL (0.2-1.3)
[2024-05-30 09:00] VITALS: BP 97/51; PULSE 108
[2024-05-30 09:00] LABS: Basophils Percent Auto 0.2 % (0.2-1.2); Eosinophils Absolute Auto 0.2 K/mm3 (0-0.3); Eosinophils Percent Auto 1.3 % (0-4.4); Hematocrit 37.4 % (37.0-47.0); Hemoglobin 12.6 g/dL (12.0-15.0); Immature Granulocyte Absolute 0.09 K/mm3 (0.00-0.031); Immature Granulocyte Percent A 0.7 % (0-0.5); Lymphocytes Absolute Auto 1.82 K/mm3 (0.9-3.2); Lymphocytes Percent Auto 14.6 % (18.3-44.2); Mean Corpuscular HGB Conc 33.7 g/dl (32-36); Mean Corpuscular Hemoglobin 29.9 pg (26-34); Mean Corpuscular Volume 88.8 fl (80-100); Mean Platelet Volume 11.2 fl (7.4-10.4); Monocytes Absolute Auto 0.5 K/mm3 (0.1-0.6); Neutrophils Absolute Auto 9.8 K/mm3 (1.3-6.7); Neutrophils Percent Auto 79.2 % (45.5-73.1); Platelet Count Result 217 k/mm3 (150-375); Red Blood Count 4.21 M/mm3 (4.2-5.4); White Blood Count 12.4 K/mm3 (4.5-10.0)
[2024-05-30 09:21] LABS: Alanine Aminotransferase 180 U/L (6-35); Albumin Level 3.3 g/dL (3.5-5.1); Alkaline Phosphatase 165 U/L (38-126); Anion Gap 7 mmol/L (4-12); Aspartate Amino Transferase 131 U/L (14-36); Bilirubin,Total 0.5 mg/dL (0.2-1.3); Blood Urea Nitrogen 8 mg/dL (7-17); Calcium 8.5 mg/dL (8.4-10.2); Carbon Dioxide 19 mmol/L (22-30); Chloride 109 mmol/L (98-107); Estimated Glomerular Filt Rate > 60; Glucose 120 mg/dL (65-110); Potassium 3.4 mmol/L (3.4-5.0); Sodium 135 mmol/L (137-145); Uric Acid 4.7 mg/dL (2.5-7.5)
--- NOTE | 2024-05-30 11:37 | PC.NURSE ---
Dr. Luis reviewed lab results. November D/C home and follow up at regularly scheduled appt.
[2024-06-03 08:56] LABS: Basophils Percent Auto 0.3 % (0.2-1.2); Eosinophils Absolute Auto 0.2 K/mm3 (0-0.3); Eosinophils Percent Auto 1.6 % (0-4.4); Hematocrit 37.6 % (37.0-47.0); Hemoglobin 12.9 g/dL (12.0-15.0); Immature Granulocyte Absolute 0.06 K/mm3 (0.00-0.031); Immature Granulocyte Percent A 0.5 % (0-0.5); Lymphocytes Absolute Auto 1.88 K/mm3 (0.9-3.2); Lymphocytes Percent Auto 14.6 % (18.3-44.2); Mean Corpuscular HGB Conc 34.3 g/dl (32-36); Mean Corpuscular Hemoglobin 30.1 pg (26-34); Mean Corpuscular Volume 87.9 fl (80-100); Mean Platelet Volume 11.3 fl (7.4-10.4); Monocytes Absolute Auto 0.7 K/mm3 (0.1-0.6); Monocytes Percent Auto 5.1 % (2.6-8.5); Neutrophils Percent Auto 77.9 % (45.5-73.1); Platelet Count Result 208 k/mm3 (150-375); Red Blood Count 4.28 M/mm3 (4.2-5.4); White Blood Count 12.9 K/mm3 (4.5-10.0)
[2024-06-03 09:12] LABS: Alanine Aminotransferase 261 U/L (6-35); Albumin Level 3.5 g/dL (3.5-5.1); Alkaline Phosphatase 186 U/L (38-126); Anion Gap 7 mmol/L (4-12); Aspartate Amino Transferase 190 U/L (14-36); Bilirubin,Total 0.6 mg/dL (0.2-1.3); Blood Urea Nitrogen 8 mg/dL (7-17); Calcium 8.7 mg/dL (8.4-10.2); Carbon Dioxide 20 mmol/L (22-30); Chloride 107 mmol/L (98-107); Estimated Glomerular Filt Rate > 60; Glucose 110 mg/dL (65-110); Potassium 3.8 mmol/L (3.4-5.0); Sodium 134 mmol/L (137-145); Uric Acid 5.2 mg/dL (2.5-7.5)
[2024-06-03 09:30] LABS: Creatinine Urine 219.7 mg/dL; Total Protein Urine Random 11 mg/dL; Ur Ttl Prot Creatinine Ratio 0.05 mg/mg (0-0.20)
[2024-06-03 10:29] VITALS: BP 107/79; PULSE 121
[2024-06-06 10:48] VITALS: BP 102/65; PULSE 102
[2024-06-06 11:16] LABS: Alanine Aminotransferase 295 U/L (6-35); Albumin Level 3.3 g/dL (3.5-5.1); Alkaline Phosphatase 182 U/L (38-126); Anion Gap 5 mmol/L (4-12); Aspartate Amino Transferase 215 U/L (14-36); Bilirubin,Total 0.5 mg/dL (0.2-1.3); Blood Urea Nitrogen 6 mg/dL (7-17); Calcium 8.4 mg/dL (8.4-10.2); Carbon Dioxide 20 mmol/L (22-30); Chloride 109 mmol/L (98-107); Estimated Glomerular Filt Rate > 60; Glucose 118 mg/dL (65-110); Potassium 3.6 mmol/L (3.4-5.0); Sodium 134 mmol/L (137-145); Uric Acid 4.3 mg/dL (2.5-7.5)
--- NOTE | 2024-06-06 13:26 | PC.NURSE ---
0270 Dr. Luis here in unit, reviewed ultrasound result and lab result. discussed with patient plan of care at this point. keep the NST and lab plan as previously scheduled. pt verbalized understanding.
--- NOTE | ~2024-06-10 | US_ITS ---
EXAMINATION: US OB BPP wo non-stress DATE: 06/03/2024 09:45 INDICATION: Hypertension. Assess biophysical profile during third trimester . TECHNIQUE: Real-time pelvic ultrasound was performed. The interpreting radiologist was not present fo r the study. COMPARISON: None. FINDINGS: There is a single living fetus in vertex presentation. The placenta is posterior fundal. heart rate is 127 beats per minute (bpm). Normal amniotic fluid index of 14.6 cm (5th%-95%: 7.9-24.9 cm at 35 weeks estimated gestational age). Biophysical profile performed by the technologist: breathing (30 sec sustained breathing in 30 minutes): 2 out of 2 movement (3 gross body movements in 30 minutes): 2 out of 2 tone (one episode of akoqfta-qhhpyvnny-lwjtjgf limb movement): 2 out of 2 Amniotic fluid pocket (2 cm): 2 out of 2 Total score: 8 out of 8 IMPRESSION: 1. Single living fetus in vertex presentation with heart rate of 127 bpm. 2. Biophysical profile 8 out of 8. 3. Normal amniotic fluid index of 14.6 cm. Reviewed, dictated and finalized at location A. CTOR OF PHILANTHROPY
--- NOTE | ~2024-06-10 | US_ITS ---
Limited Abdominal Sonogram: Real-time sonographic imaging of the right upper quadrant was performed. Clinical History: Right upper quadrant pain Findings: The liver appears echogenic, with no evidence of solid mass lesion or bile duct dilatation . Main portal vein demonstrates normal direction of flow. The gallbladder is well distended, and appe ars normal with no evidence of gallstone or wall thickening. The common bile duct measures 2 mm. The visualized pancreas, aorta, and IVC are unremarkable. Impression: Diffuse fatty infiltration of the liver. Reviewed, dictated and finalized at location M. ICAL EDUCATION CONSULTANT Impression: Diffuse fatty infiltration of the liver.
--- NOTE | ~2024-06-10 | US_ITS ---
RIGHT UPPER QUADRANT ABDOMINAL ULTRASOUND (Doppler ultrasound interrogation techniques used as needed for this exam.) Ordering provider: Jaymie Luis MD History: . elevated liver enzymes . Comparison: None. FINDINGS: PANCREAS: Normal echotexture and size. The tail is not well demonstrated. PORTAL VEIN: Hepatopedal flow demonstrated. LIVER: Normal size with increased echogenicity suggestive of fat infiltration. Small hypodensity jose luis uring 2.7 x 0.6 x 0.6 most likely a small cyst. No focal hepatic lesions or perihepatic fluid collect ions are identified. BILIARY DUCTS: No intra or extrahepatic biliary dilation. Common bile duct measures 3.2 mm in diamete r which is normal for patient's age. GALLBLADDER: Normal. No stones, sludge, gallbladder wall thickening or pericholecystic fluid. Wall me asures 0.2 cm. Negative sonographic Diaz's sign. RIGHT KIDNEY: Normal size. Measures 11.9 x 5.7 x 5.7 cm. Mild hydronephrosis is noted. No solid renal mass, renal calculi or perinephric fluid collections. No renal cysts. FREE FLUID: None visualized within the upper abdomen. IMPRESSION: Fat infiltration of the liver. Tiny hypodensity most likely a cyst in the liver. Follow-up advised. M ild right hydronephrosis. Otherwise, normal right upper quadrant ultrasound. Reviewed, dictated and finalized at location A. CLE DESIGNER IMPRESSION: Fat infiltration of the liver. Tiny hypodensity most likely a cyst in the liver . Follow-up advised. Mild right hydronephrosis. Otherwise, normal right upper q uadrant ultrasound.
--- NOTE | ~2024-06-10 | US_ITS ---
EXAMINATION: US OB BPP wo non-stress DATE: 06/06/2024 10:31 INDICATION: -induced hypertension. Third trimester. TECHNIQUE: Real-time pelvic ultrasound was performed. COMPARISON: Ultrasound 06/03/2024 FINDINGS: There is a single living fetus in vertex presentation. The placenta is posterior. heart rate i s 148 beats per minute (bpm). Biophysical profile performed by the technologist: breathing (30 sec sustained breathing in 30 minutes): 2 out of 2 movement (3 gross body movements in 30 minutes): 2 out of 2 tone (one episode of mqzybqx-zeewxwjjn-zcvsane limb movement): 2 out of 2 Amniotic fluid pocket (2 cm): 2 out of 2 Total score: 8 out of 8 IMPRESSION: 1. Single living fetus in vertex presentation. 2. Biophysical profile 8 out of 8. Reviewed, dictated and finalized at location A. CAL SUPERINTENDENT
--- NOTE | ~2024-06-10 | US_ITS ---
EXAMINATION: US OB BPP wo non-stress DATE: 05/25/2024 10:02 INDICATION: Retention during third trimester TECHNIQUE: Real-time pelvic ultrasound was performed. The interpreting radiologist was not present fo r the study. COMPARISON: None. FINDINGS: There is a single living fetus in vertex presentation. The placenta is posterior. heart rate i s 149 beats per minute (bpm). Normal amniotic fluid index of 10.8 cm (5th%-95%: 8.1-24.8 cm at 34 wee ks estimated gestational age) Biophysical profile performed by the technologist: breathing (30 sec sustained breathing in 30 minutes): 2 out of 2 movement (3 gross body movements in 30 minutes): 2 out of 2 tone (one episode of nhzjalw-nnsghjtsu-taakpej limb movement): 2 out of 2 Amniotic fluid pocket (2 cm): 2 out of 2 Total score: 8 out of 8 IMPRESSION: 1. Single living fetus in vertex presentation with heart rate of 149 bpm. 2. Biophysical profile 8 out of 8. 3. Normal amniotic fluid index of 10.8 cm. Reviewed, dictated and finalized at location B. C++ PROFESSOR
[2024-06-10 09:52] LABS: Basophils Absolute Auto 0.1 K/mm3 (0.0-0.1); Basophils Percent Auto 0.6 % (0.2-1.2); Eosinophils Absolute Auto 0.1 K/mm3 (0-0.3); Eosinophils Percent Auto 1.1 % (0-4.4); Hematocrit 38.3 % (37.0-47.0); Hemoglobin 12.9 g/dL (12.0-15.0); Immature Granulocyte Absolute 0.09 K/mm3 (0.00-0.031); Immature Granulocyte Percent A 0.7 % (0-0.5); Lymphocytes Absolute Auto 1.81 K/mm3 (0.9-3.2); Lymphocytes Percent Auto 14.3 % (18.3-44.2); Mean Corpuscular HGB Conc 33.7 g/dl (32-36); Mean Corpuscular Hemoglobin 29.9 pg (26-34); Mean Corpuscular Volume 88.9 fl (80-100); Mean Platelet Volume 11.4 fl (7.4-10.4); Monocytes Absolute Auto 0.7 K/mm3 (0.1-0.6); Monocytes Percent Auto 5.8 % (2.6-8.5); Neutrophils Absolute Auto 9.8 K/mm3 (1.3-6.7); Neutrophils Percent Auto 77.5 % (45.5-73.1); Platelet Count Result 194 k/mm3 (150-375); Red Blood Count 4.31 M/mm3 (4.2-5.4); Red Cell Distribution Width 12.9 % (11.5-14.5); White Blood Count 12.7 K/mm3 (4.5-10.0)
[2024-06-10 10:05] VITALS: BP 107/69; PULSE 108
[2024-06-10 10:12] LABS: Alanine Aminotransferase 498 U/L (6-35); Albumin Level 3.3 g/dL (3.5-5.1); Alkaline Phosphatase 192 U/L (38-126); Anion Gap 6 mmol/L (4-12); Aspartate Amino Transferase 435 U/L (14-36); Bilirubin,Total 0.8 mg/dL (0.2-1.3); Blood Urea Nitrogen 7 mg/dL (7-17); Calcium 8.4 mg/dL (8.4-10.2); Carbon Dioxide 20 mmol/L (22-30); Chloride 109 mmol/L (98-107); Estimated Glomerular Filt Rate > 60; Glucose 87 mg/dL (65-110); Potassium 3.6 mmol/L (3.4-5.0); Sodium 135 mmol/L (137-145); Uric Acid 4.4 mg/dL (2.5-7.5)
--- NOTE | 2024-06-10 10:17 | PC.NURSE ---
Dr Luis notified of change in liver enzymes today. Will call us back with a plan of care.
[2024-06-10 10:24] LABS: Creatinine Urine 172.4 mg/dL; Total Protein Urine Random 9 mg/dL; Ur Ttl Prot Creatinine Ratio 0.05 mg/mg (0-0.20)
--- NOTE | 2024-06-10 10:24 | PC.NURSE ---
Dr Luis returned call, plans to deliver patient today via c/s. MD wanting [facility] report after the scan today. Patient was notified to return to labor and delivery after her US at [facility] for delivery.
== END 2024-08-23 23:59 | disposition home or self-care (01) ==
LOC: ANHOBOP 08:46
PROVIDERS: PCP Obstetrics & Gynecology; Visit Provider Obstetrics & Gynecology
DX: O13.3 Gestational [pregnancy-induced] hypertension without significant proteinuria, third trimester (principal); K76.0 Fatty (change of) liver, not elsewhere classified; R10.11 Right upper quadrant pain; Z3A.00 Weeks of gestation of pregnancy not specified
CPT/HCPCS: 36415; 59025; 76705; 76819; 80053; 80076; 81001; 82570; 84156; 84550; 85025; 87086

== ENCOUNTER 2024-06-10 10:50 | Inpatient (IN) | payer OTHER, SELFPAY ==
[2024-06-10] VITALS (48 sets, daily range): BP systolic 87–131; BP diastolic 46–95; PULSE 58–276; RESP 12–20; TEMP 36.2–36.8; O2SAT 97–100; BMI 43.8
[2024-06-10] MEDS: LACTATED RINGERS 1,000 ML 125 ML IV CONT ×2 (11:20→12:11)
--- NOTE | 2024-06-10 11:24 | P.HP_ITS ---
H&P: HPI History of Present Illness Date/Time: 06/10/24 11:24 Chief Complaint: elevated liver enzymes Narrative: Shaneka is a 34yo @ 36w 2d who presented to routine testing as she has been monitored for transaminitis. Over the last 4 days, they have doubled and will now be for delivery via repeat with tubal. [facility] has been consulted multiple times and was thinking this could be viral etiology (had viral illness about 2 weeks before this started). She has had normal blood pressures (has had one diastolic of 90); 24 hour urine protein was normal at <70g (unlikely pre-eclampsia). Hep panel, bile acids and viral testing were also all normal. She has had multiple RUQ US which show mild fatty infiltrate (but doesn't fit the picture for fatty liver of ). She has been doing twice weekly NST/labs, weekly BPP. She reports good movement. She has been having headaches, but limiting her Tylenol intake. She denies pain, vaginal bleeding or regular contractions. She does have mild itching of her Her is complicated by: - Obesity; BMI 42-- ASA 81mg, [facility] for anatomy - Previous x1; for repeat + salpingectomy, [place] sterilization signed 03/22/24 - h/o migraines/headaches - Elevated liver enzymes?? atypical pre-eclampsia vs atypical cholestasis vs viral etiology? Review of Systems Constitutional: Constitutional: Denies chills, Denies fever(s) and Reports headache(s) Eyes: Eyes: Denies change in vision ENT: Reports headache(s) Cardiovascular: Cardiovascular: Denies chest pain and Denies dyspnea Respiratory: Respiratory: Denies dyspnea Genitourinary: Genitourinary: Denies abnormal vaginal bleeding and Denies vaginal discharge Neurologic: Reports headache(s) Psychiatric: Psychiatric: Denies anxiety and Denies depression [facility] Past Medical History Medical History History of PCOS Seasonal allergies Surgical History Surgical History Delivery by section History of surgical removal of ganglion cyst [place] teeth extracted Family History Family History Mother Endometriosis Hypertension Grandparent Endometriosis Diabetes mellitus Social History Social History Smoking status: Former smoker Tobacco type: e-cigarettes/vaping Alcohol intake: never Substance use: never Substance use type: does not use Do You Feel Safe in your Home?: Yes Lack of Transportation: No Lack of Food: Never True Current Housing: Decline to Answer Concerned About Future Housing: Decline to Answer Difficulty Paying Gas/Electric Bills: Decline to Answer Difficulty Paying for Meds: Decline to Answer Currently Unemployed: Decline to Answer Education: Decline to Answer Difficulty w/ Childcare or Family Care: Decline to Answer Living arrangements: with family Occupation/Education: other Additional occupation/education comments: stay at home mom Gender identity (if verbalized by the patient): Female Sexual Orientation (if Verbalized by the Patient): Straight or Heterosexual Meds Home Medications and Allergies Home Medications Medication Instructions Recorded Confirmed Type levocetirizine 5 mg tablet (Xyzal) 5 mg PO DAILY 03/22/24 06/08/24 History calcium carbonate (Tums) 200 mg PO BID 04/20/24 06/08/24 History albuterol sulfate 90 mcg/actuation 2 inh inhalation Q4H PRN shortness 05/04/24 06/08/24 Rx aerosol inhaler of breath or wheezing #6.7 grams famotidine 20 mg tablet (Pepcid) 20 mg PO DAILY 05/18/24 06/08/24 History Allergies Allergy/AdvReac Type Severity Reaction Status Date / Time basil Allergy Severe Swelling Verified 06/08/24 08:36 of Lip/Tongue/Throat banana Allergy Mild Other Verified 06/08/24 08:36 egg Allergy Mild Other Verified 06/08/24 08:36 Exam Const: General: cooperative, comfortable, no acute distress and obese Nutritional Appearance: obese Orientation/consciousness: patient oriented x3 Resp: Effort & Inspection: normal respiratory effort Cardio: Rate: regular rate GI: GI Palp: No abdominal tenderness : Other: FHT's: 150's/ mod michael/ + accels/ no decels - cat 1 TOCO: no ctxs Membranes: intact Presentation: cephalic Skin: General skin exam: normal color Neuro: General: patient oriented x3 Extrem: General: normal to inspection Psych: Appearance: grossly normal Affect: normal affect Attitude: cooperative Assessment and Plan Assessment and plan (1) Transaminitis: Code(s): R74.01 - Elevation of levels of liver transaminase levels Status: Acute (2) Delivery by section: Status: Acute (3) Request for sterilization: Code(s): Z30.2 - Encounter for sterilization Status: Acute Plan - liver enzymes have drastically increased in 4 days; pt 36+ weeks and will proceed with delivery - patient for repeat section with bilateral salpingectomy - Risks and benefits discussed in detail - will consult GI to verify no additional testing/monitoring needing to be done
[2024-06-10] MEDS: ONDANSETRON INJ 4 MG/2 ML VIAL IV PUSH (11:30)
[2024-06-10] MEDS: FAMOTIDINE 20 MG/2 ML VIAL IV PUSH (11:32)
[2024-06-10 11:44] LABS: Prothrombin Time 13.7 Seconds (11.1-14.7)
[2024-06-10 11:45] LABS: Fibrinogen 726 mg/dl (215-510); Partial Thromboplastin Time 24.7 Seconds (22.3-36.8)
--- NOTE | 2024-06-10 11:46 | WPDHPUPDATE1 ---
History and Physical Update Update Date/Time: 06/10/24 11:46 History and Physical has been reviewed, including an updated exam of the patient. There are NO changes in the patient's condition. Risks, benefits, and alternatives have been discussed and questions answered. Patient agrees to proceed with section with bilateral salpingectomy .
--- NOTE | 2024-06-10 11:56 | LDADM ---
This patient, Shaneka Rowe, was admitted to [facility] on 06/10/24 at 10:50. Plans for surgery/ pain management were discussed with patient. Patient/family oriented to hospital policies and general routines including ID bracelet, bed and alarms, visiting hours, pain management, procedures, bathroom and other care routines, personal items, smoking policy, room service/diet and guest tray routines, security routines, and visiting hours. Patient/Family are encouraged to report perceived risks to care and to ask questions if they do not understand what they are told or what they should do. See [facility]BI[facility] for further documentation.
--- NOTE | 2024-06-10 12:07 | P.PNAN_ITS ---
Anes - Eval Pre Procedure Procedure: Operation Date: 06/10/24 11:45 Proposed Procedures p Repeat Section with Bilateral Tubal Ligation - Jaymie Luis MD Date/Time: 06/10/24 12:07 Surgeon: Toby Preop Diagnosis: Elevated LIver enzymes Pre Op Diagnosis: C/S Patient Data Age: 34 Gender: F Height: 1.61 m Weight: 114 kg Last Vital Signs Pulse 93 06/10/24 12:01 BP 123/82 06/10/24 12:01 O2 Del Method Room Air 06/10/24 11:54 Allergies Allergy/AdvReac Type Severity Reaction Status Date / Time basil Allergy Severe Swelling Verified 06/08/24 08:36 of Lip/Tongue/Throat banana Allergy Mild Other Verified 06/08/24 08:36 egg Allergy Mild Other Verified 06/08/24 08:36 Home Medications Medication Instructions Recorded Confirmed Type levocetirizine 5 mg tablet (Xyzal) 5 mg PO DAILY 03/22/24 06/08/24 History calcium carbonate (Tums) 200 mg PO BID 04/20/24 06/08/24 History albuterol sulfate 90 mcg/actuation 2 inh inhalation Q4H PRN shortness 05/04/24 06/08/24 Rx aerosol inhaler of breath or wheezing #6.7 grams famotidine 20 mg tablet (Pepcid) 20 mg PO DAILY 05/18/24 06/08/24 History Laboratory Tests 06/10/24 06/10/24 11:18 11:24 PT 13.7 Seconds (11.1-14.7) INR 1.0 APTT 24.7 Seconds (22.3-36.8) Fibrinogen 726 H mg/dl (215-510) RPR Pending HIV 1&2 Ab/P24 Ag 4thGn Pending Blood Type Pending Antibody Screen Pending Patient hx anesthesia problems: none Family hx anesthesia problems: none Results Review: All pre-operative results and documents have been reviewed as part of the pre- operative evaluation. [facility] Past Medical History Medical History (Updated 06/10/24 @ 12:08 by López Beckwith Jr., CRNA) Elevated liver enzymes History of PCOS Obesity Seasonal allergies Transaminitis Surgical History Surgical History Delivery by section History of surgical removal of ganglion cyst [place] teeth extracted Family History Family History Mother Endometriosis Hypertension Grandparent Endometriosis Diabetes mellitus Social History Social History Years smoked: 9 Smoking status: Current every day smoker Tobacco type: e-cigarettes/vaping Second hand tobacco smoke exposure: Yes Alcohol intake: never Substance use: never Substance use type: does not use Do You Feel Safe in your Home?: Yes Lack of Transportation: No Lack of Food: Never True Current Housing: Decline to Answer Concerned About Future Housing: Decline to Answer Difficulty Paying Gas/Electric Bills: Decline to Answer Difficulty Paying for Meds: Decline to Answer Currently Unemployed: Decline to Answer Education: Decline to Answer Difficulty w/ Childcare or Family Care: Decline to Answer Living arrangements: with family Occupation/Education: other Additional occupation/education comments: stay at home mom Gender identity (if verbalized by the patient): Female Sexual Orientation (if Verbalized by the Patient): Straight or Heterosexual Exam Day of Procedure 06/10/24 12:07 Patient weight: morbidly obese Heart: regular rate and rhythm Lungs: clear to auscultation Airway: Mallampati scale class II Neurological: alert and oriented
[2024-06-10 12:16] LABS: Rapid Plasma Reagin Non-Reactive (NonReactive)
[2024-06-10] MEDS: ceFAZolin 2 GM/D5W 50 ML 2 GM/50 ML BAG IVPB (12:17)
[2024-06-10 12:21] LABS: HIV 1/2 Ab P24 Ag Result Negative (Negative)
--- NOTE | 2024-06-10 12:32 | SUR.OPER ---
FHT's 135 in OR after spinal placed
--- NOTE | 2024-06-10 13:36 | W.PM.OBCSD ---
OB - Delivery Note Procedure Delivery date: 06/10/24 Pre-op diagnosis: Previous Delivery and Other (transaminitis; worsening) Post-op Diagnosis: Same Induction method: None Prior to decision for section, ACOG/SM labor guidelines were considered and discussed with the patient and staff. Decision made to proceed with the section.: Yes Procedure Performed: Repeat Secondary branch: low cervical, transverse and Tubal Ligation Surgeon: Jaymie Luis MD Anesthesia type: Spinal Description of Procedure/Findings: Male infant, clear fluid, normal fallopian tubes and ovaries bilaterally. Salpingectomy performed w/o issue. Specimen: Yes Estimated Blood Loss: 120 Pathology: Yes (placenta, left and right fallopian tubes) Complications: No immediate complications Condition: Stable Disposition: Floor Baby Date of : 06/10/24 Time of : 12:55 Gestational Age by Date: 36 (.2) gender: Male Weight (pounds): 6 Weight (ounces): 15 presentation: vertex position: Right Occiput Transverse Placenta delivery description: Expressed Cord Vessel Description: 3 Vessels and Delayed Cord Clamping score one minute: 7 score five minutes: 8 Narrative: Shaneka was counseled on all risks and benefits in detail. She was taken to the operating room where spinal was placed. She was then prepped and draped in the normal sterile fashion. She received 2g Ancef and a time out was performed. A Pfannenstiel incision was made in the skin and carried down to the underlying fascia. The fascia was nicked on either side of the midline and the fascial incision was extended laterally and superiorly using curved Bills scissors. The fascia was then elevated using Pietro clamps and the underlying rectus muscles were dissected off the fascia, superiorly and inferiorly. The rectus muscles were then in the midline and the peritoneum was entered bluntly. Once adequate exposure was obtained, a Mobius self retractor was placed within the abdomen. A bladder flap was created. A low transverse incision was made on the lower uterine segment and clear fluid was noted. The occiput was brought to the hysterotomy and the head was easily delivered. The shoulders and body then followed without complications. The infant had spontaneous cry and the mouth and nose were bulb suctioned. Delayed cord clamping was performed, and the cord was then doubly clamped and cut and the was handed off to the awaiting pediatric nurse. A segment of the cord was collected for cord gases. The remaining cord blood was collected for typing. With Pitocin infusing, the placenta delivered with gentle traction on the cord without complications. The uterus was then cleared out of all clots and debris using a clean, moist lap. The hysterotomy was then repaired in a running fashion using 0 Vicryl. Two additional stitches were placed at the left aspect of the hysterotomy using 0 Vicryl and good hemostasis was noted. Good uterine tone was noted. The pelvis was cleared of all clots and fluid. The bilateral adnexa were examined and found to be normal. The right fallopian tube was grasped with a Brittny. The fimbriated end was released and the mesosalpinx was serially clamped, coagulated, and then transected using the LigaSure device until the proximal end was met. The tube was then cross clamped, coagulated, and transected using the LigaSure device. The same procedure was then performed on the left side without complication. The Mobius retractor was removed from the abdomen. The peritoneum, muscle, and fascia were examined and made hemostatic with Bovie cautery. The fascia was then repaired using a 0 Vicryl suture in a running fashion. The subcutaneous tissue was then irrigated and made hemostatic with Bovie cautery. The subcutaneous tissue was then reapproximated using 2-0 Vicryl. The skin was then closed using 4-0 Monocryl in a running subcuticular fashion. A Mepilex dressing was placed over her incision. Sponge, lap, needle and instrument counts were correct at the end of the procedure x2. The patient tolerated the procedure well and was taken to recovery in a stable condition.
--- NOTE | 2024-06-10 13:44 | SUR.PHASEI ---
Pt arrived to recovery room with IV of 1000 ml LR with 20 units Pitocin.
[2024-06-10] MEDS: fentaNYL CITRATE INJ (*CRX) 100 MCG/2 ML VIAL 25 MCG IV PUSH ×4 (14:00→15:40)
--- NOTE | 2024-06-10 16:00 | SUR.PHASEI ---
To nursery to see baby before being transferred to mom/baby unit.
[2024-06-10] MEDS: LORATADINE 10 MG TABLET PO (17:13)
[2024-06-10] MEDS: LIDOCAINE 5% PATCH 1 PATCH TRANSDERM (17:30)
[2024-06-10] MEDS: DOCUSATE SODIUM 100 MG CAPSULE PO (17:34)
[2024-06-10] MEDS: KETOROLAC 15 MG/ML VIAL (*BKC) IV PUSH (17:40)
[2024-06-10] MEDS: MORPHINE SULFATE (*CRX) 2 MG/ML INJ IV PUSH (17:44)
--- NOTE | 2024-06-10 18:38 | PC.NURSE ---
1740. Patient transferred to post room #290 bed. Support person present. Oriented to unit, room, information board, rooming in, admission packet and security measures. Patient verbalizes understanding.
[2024-06-10] MEDS: SIMETHICONE 80 MG TAB.CHEW PO (18:54)
[2024-06-10] MEDS: diphenhydrAMINE HCl INJ 50 MG/ML VIAL 25 MG IV PUSH (18:55)
[2024-06-10] MEDS: OXYTOCIN 30 UNITS/NS 500 ML 30 UNITS/500 ML BAG 125 UNITS IV CONT (20:00)
[2024-06-11 00:30] VITALS: BP 137/66; PULSE 81; RESP 19; TEMP 36.4; O2SAT 97
[2024-06-11] MEDS: DEXTROSE 5%/0.45% SOD CHL 1,000 ML 125 ML IV CONT (01:11)
[2024-06-11] MEDS: KETOROLAC 15 MG/ML VIAL (*BKC) IV PUSH ×3 (01:11→14:04)
[2024-06-11] MEDS: oxyCODONE HCL (*CRX) 5 MG TAB IR PO ×3 (01:12→17:47)
[2024-06-11 04:59] LABS: Basophils Absolute Auto 0.1 K/mm3 (0.0-0.1); Basophils Percent Auto 0.4 % (0.2-1.2); Eosinophils Absolute Auto 0.2 K/mm3 (0-0.3); Eosinophils Percent Auto 1.3 % (0-4.4); Hematocrit 34.9 % (37.0-47.0); Hemoglobin 11.5 g/dL (12.0-15.0); Immature Granulocyte Absolute 0.08 K/mm3 (0.00-0.031); Immature Granulocyte Percent A 0.6 % (0-0.5); Lymphocytes Absolute Auto 2.02 K/mm3 (0.9-3.2); Mean Corpuscular Hemoglobin 29.5 pg (26-34); Mean Corpuscular Volume 89.5 fl (80-100); Mean Platelet Volume 12.2 fl (7.4-10.4); Monocytes Absolute Auto 0.9 K/mm3 (0.1-0.6); Monocytes Percent Auto 6.9 % (2.6-8.5); Neutrophils Absolute Auto 10.2 K/mm3 (1.3-6.7); Neutrophils Percent Auto 75.8 % (45.5-73.1); Platelet Count Result 195 k/mm3 (150-375); Red Cell Distribution Width 13.2 % (11.5-14.5); White Blood Count 13.5 K/mm3 (4.5-10.0)
[2024-06-11 05:06] LABS: Alanine Aminotransferase 392 U/L (6-35); Albumin Level 2.7 g/dL (3.5-5.1); Alkaline Phosphatase 163 U/L (38-126); Anion Gap 3 mmol/L (4-12); Aspartate Amino Transferase 335 U/L (14-36); Bilirubin,Total 0.6 mg/dL (0.2-1.3); Blood Urea Nitrogen 6 mg/dL (7-17); Calcium 8.4 mg/dL (8.4-10.2); Carbon Dioxide 22 mmol/L (22-30); Chloride 110 mmol/L (98-107); Estimated CRCL calculation 139 ml/min; Estimated Glomerular Filt Rate > 60; Glucose 107 mg/dL (65-110); Potassium 4.2 mmol/L (3.4-5.0); Sodium 135 mmol/L (137-145)
[2024-06-11] MEDS: SIMETHICONE 80 MG TAB.CHEW PO ×3 (07:33→17:47)
[2024-06-11] MEDS: DOCUSATE SODIUM 100 MG CAPSULE PO ×2 (08:22→17:47)
[2024-06-11 08:25] VITALS: BP 101/62; PULSE 79; RESP 16; TEMP 36.1; O2SAT 97
--- NOTE | 2024-06-11 09:00 | PM.OBPNVD ---
OB - PN: Subj Subjective Date/time seen: 06/11/24 09:00 S: Diet/minimal ambulation. Pain well controlled. O: VSS afebrile abd +BS, soft. inc covered labs: noted A: POD 1...expected postop course. Transaminases decreased. P: routine postop/ care, will continue to trend LFT's. OB - PN: Obj Data Labs 06/11/24 04:37 06/11/24 04:37 Labs: Laboratory Results - last 24 hr 06/10/24 06/10/24 06/11/24 11:18 11:24 04:37 WBC 13.5 H RBC 3.90 L Hgb 11.5 L Hct 34.9 L MCV 89.5 MCH 29.5 MCHC 33.0 RDW 13.2 Plt Count 195 MPV 12.2 H Immature Gran % (Auto) 0.6 H Neut % (Auto) 75.8 H Lymph % (Auto) 15.0 L [place] % (Auto) 6.9 Eos % (Auto) 1.3 Baso % (Auto) 0.4 Lymph # (Auto) 2.02 [place] # (Auto) 0.9 H Eos # (Auto) 0.2 Baso # (Auto) 0.1 Abs Immat Gran (auto) 0.08 H Absolute Neuts (auto) 10.2 H Absolute Nucleated RBC 0.000 Nucleated RBC % 0.0 PT 13.7 INR 1.0 APTT 24.7 Fibrinogen 726 H Sodium 135 L Potassium 4.2 Chloride 110 H Carbon Dioxide 22 Anion Gap 3 L BUN 6 L Creatinine 0.60 L Estim Creat Clear Calc 139 Estimated GFR > 60 Glucose 107 Calcium 8.4 Total Bilirubin 0.6 AST 335 H ALT 392 H Alkaline Phosphatase 163 H Total Protein 6.0 L Albumin 2.7 L RPR Non-reactive HIV 1&2 Ab/P24 Ag 4thGn Negative Blood Type A Positive Antibody Screen Negative OB - PN A/P Time Spent With Patient Time: Total time spent is greater than 50% in coordination of care (as documented) at patient's floor/unit and/or counseling patient:
--- NOTE | 2024-06-11 10:19 | PC.NURSE ---
Introductions were made, then consulted with patient to assess needs related to . Infant is in level 2 nursery and mother is pumping and feeding infant at this time. She plans to put infant to breast once he is rooming in on the unit and will call for assistance with latching infant at that time. For now, she does not require any further education about using her pump. Instructions given on cleaning, care, that there should be no pain, pumping schedule for milk production, collection, and storage of human milk. Reiterated the importance of pumping every 2-3 hours when away from infant. Mother is encouraged to record the pumping schedule on the feeding sheet.?Mother voiced understanding of the education. Reported to the Primary RN. educational folder given to mother and reviewed.
--- NOTE | 2024-06-11 11:17 | WPDANLDPN2 ---
Anes-Prog Note L&D Date/Time: 06/11/24 11:17 Comfortable throughout: section Neuraxial method: spinal Epidural/Spinal procedure site: clean & non-tender Neuro status: Neuro function grossly intact. Cardiovascular status: normal Respiratory status: normal Airway patency: baseline Mental status: baseline Post-Op hydration status: normal Vital Signs: Last Vital Signs Temp 36.4 C 06/11/24 00:30 Pulse 81 06/11/24 00:30 Resp 19 06/11/24 00:30 BP 137/66 06/11/24 00:30 Pulse Ox 97 06/11/24 00:30 O2 Del Method Room Air 06/11/24 00:30 Pain score (VAS): 3 I/O: Intake & Output 06/10/24 06/11/24 06/11/24 23:59 07:59 15:59 Intake Total 1378 Output Total 250 1250 Balance -250 128 Post-procedural complaints: none Patient feedback: Patient satisfied with anesthetic care.
--- NOTE | 2024-06-11 11:17 | WPDANLDNPN2 ---
Anes-Prog Note L&D-Neuraxial Date/Time: 06/11/24 11:17 Neuraxial medications: intrathecal PF morphine Opiod-related complaints: none Patient feedback: Patient satisfied with post-operative pain management.
[2024-06-11 13:30] VITALS: BP 102/62; PULSE 84
--- NOTE | 2024-06-11 19:10 | PC.NURSE ---
MOB and FOB to first floor nursery to visit with .
[2024-06-11 20:13] VITALS: BP 117/71; PULSE 83; RESP 18; TEMP 36.6; O2SAT 98
[2024-06-11] MEDS: IBUPROFEN 600 MG TABLET PO (20:13)
[2024-06-11] MEDS: LIDOCAINE 5% PATCH 1 PATCH TRANSDERM (20:13)
[2024-06-12] MEDS: IBUPROFEN 600 MG TABLET PO ×4 (02:29→20:27)
[2024-06-12 03:56] LABS: Alanine Aminotransferase 276 U/L (6-35); Albumin Level 2.6 g/dL (3.5-5.1); Alkaline Phosphatase 156 U/L (38-126); Anion Gap 3 mmol/L (4-12); Aspartate Amino Transferase 140 U/L (14-36); Bilirubin,Total 0.4 mg/dL (0.2-1.3); Blood Urea Nitrogen 9 mg/dL (7-17); Calcium 8.1 mg/dL (8.4-10.2); Carbon Dioxide 24 mmol/L (22-30); Chloride 109 mmol/L (98-107); Estimated CRCL calculation 107 ml/min; Estimated Glomerular Filt Rate > 60; Glucose 102 mg/dL (65-110); Potassium 3.6 mmol/L (3.4-5.0); Sodium 136 mmol/L (137-145)
[2024-06-12] MEDS: LANOLIN (LANSINOH) 7.5 GM CREAM 1 APPLIC TOPICAL (08:22)
[2024-06-12] MEDS: DOCUSATE SODIUM 100 MG CAPSULE PO ×2 (08:22→20:27)
[2024-06-12] MEDS: SIMETHICONE 80 MG TAB.CHEW PO ×3 (08:22→20:27)
[2024-06-12 08:25] VITALS: BP 119/82; PULSE 95; RESP 18; TEMP 36.7; O2SAT 100
--- NOTE | 2024-06-12 10:54 | PM.OBPNVD ---
OB - PN: Subj Subjective Date/time seen: 06/12/24 10:54 Feeling much better today. No sig c/o. VSS afebrile labs improving continue postop/ care likely home am OB - PN: Obj Data Labs 06/11/24 04:37 06/12/24 03:38 Labs: Laboratory Results - last 24 hr 06/12/24 03:38 Sodium 136 L Potassium 3.6 Chloride 109 H Carbon Dioxide 24 Anion Gap 3 L BUN 9 Creatinine 0.80 Estim Creat Clear Calc 107 Estimated GFR > 60 Glucose 102 Calcium 8.1 L Total Bilirubin 0.4 AST 140 H ALT 276 H Alkaline Phosphatase 156 H Total Protein 6.0 L Albumin 2.6 L OB - PN A/P Time Spent With Patient Time: Total time spent is greater than 50% in coordination of care (as documented) at patient's floor/unit and/or counseling patient:
[2024-06-12 19:00] VITALS: BP 121/56; PULSE 77; RESP 18; TEMP 36.4; O2SAT 100
[2024-06-12] MEDS: LIDOCAINE 5% PATCH 1 PATCH TRANSDERM (20:26)
[2024-06-13] MEDS: IBUPROFEN 600 MG TABLET PO ×2 (02:43→10:05)
[2024-06-13 05:07] LABS: Hemoglobin 10.7 g/dL (12.0-15.0); Mean Corpuscular HGB Conc 33.4 g/dl (32-36); Mean Corpuscular Hemoglobin 30.2 pg (26-34); Mean Corpuscular Volume 90.4 fl (80-100); Mean Platelet Volume 11.4 fl (7.4-10.4); Platelet Count Result 182 k/mm3 (150-375); Red Blood Count 3.54 M/mm3 (4.2-5.4); Red Cell Distribution Width 13.3 % (11.5-14.5); White Blood Count 10.6 K/mm3 (4.5-10.0)
[2024-06-13 05:15] LABS: Alanine Aminotransferase 216 U/L (6-35); Albumin Level 2.6 g/dL (3.5-5.1); Alkaline Phosphatase 146 U/L (38-126); Anion Gap 3 mmol/L (4-12); Aspartate Amino Transferase 81 U/L (14-36); Bilirubin,Total 0.3 mg/dL (0.2-1.3); Blood Urea Nitrogen 9 mg/dL (7-17); Carbon Dioxide 21 mmol/L (22-30); Chloride 111 mmol/L (98-107); Estimated CRCL calculation 139 ml/min; Estimated Glomerular Filt Rate > 60; Glucose 87 mg/dL (65-110); Potassium 3.8 mmol/L (3.4-5.0); Sodium 135 mmol/L (137-145)
[2024-06-13 07:40] VITALS: BP 111/69; PULSE 88; RESP 18; TEMP 37; O2SAT 97
--- NOTE | 2024-06-13 08:59 | PM.OBDSVD ---
DS: Admitting Diagnosis Discharge Date 06/13/24 Admitting Diagnosis transaminitis; severe previous delivery desire for sterilization DS: Discharge Diagnosis Discharge Diagnosis (1) S/P repeat low transverse : Code(s): Z98.891 - History of uterine scar from previous surgery Status: Acute (2) Status post bilateral salpingectomy: Code(s): Z90.79 - Acquired absence of other genital organ(s) Status: Acute OB - DS: Summary OB Procedures : NST, PIH Mgmt and Ultrasound OB Procedures Intrapartum: low cervical, transverse and Tubal ligation OB Procedures: : None Peripartum Data Delivery Method: Section Procedures: Procedures Operation Date: 06/10/24 11:45 Actual Procedure Side Surgeon p Repeat Section with Bilateral Salpingectomy Bilateral Jaymie Luis MD complications: none [place] 1: Gender: Male Disposition of : home Status at Discharge Functional status at discharge: independent ambulation Overall status at discharge: patient is back to baseline Time Spent with Patient Time attestation: Total time spent providing and/or coordinating discharge services: Exam Const: General: cooperative, comfortable, no acute distress and obese Orientation/consciousness: patient oriented x3 Resp: Effort & Inspection: normal respiratory effort Auscultation: clear to auscultation bilaterally Cardio: Rate: regular rate GI: Inspection: non-distended and incision (covered with clean dressing) GI Palp: No abdominal tenderness and Yes Soft to palpation Auscultation: normal bowel sounds : Other: fundus firm Skin: General skin exam: normal color Neuro: General: patient oriented x3 Extrem: General: normal to inspection Psych: Appearance: grossly normal Affect: normal affect Attitude: cooperative DS: Data Data Completed and Pending Pending studies at discharge: Pending at discharge 06/10/24 13:21 Surgical [PTH] Routine Labs on day of discharge: Labs from last 24 hours 06/13/24 04:54 WBC 10.6 H RBC 3.54 L Hgb 10.7 L Hct 32.0 L MCV 90.4 MCH 30.2 MCHC 33.4 RDW 13.3 Plt Count 182 MPV 11.4 H Sodium 135 L Potassium 3.8 Chloride 111 H Carbon Dioxide 21 L Anion Gap 3 L BUN 9 Creatinine 0.60 L Estim Creat Clear Calc 139 Estimated GFR > 60 Glucose 87 Calcium 8.0 L Total Bilirubin 0.3 AST 81 H ALT 216 H Alkaline Phosphatase 146 H Total Protein 5.0 L Albumin 2.6 L Discharge Plan Discharge Attending physician on discharge: Jaymie Luis Discharging Clinician: Jaymie Luis Anticipated Discharge Date/Time: 06/13/24 11:00 Patient Disposition: Home, Self-Care Activity: may shower, may drive after 2 weeks and pelvic rest Diet: regular Discharge Instructions: No lifting over 15 pounds Remove incisional dressing on 06/16/24 Patient Instructions: (DC) Stand Alone Forms: General Discharge Information Follow-up/Referrals: Jaymie Luis MD [Physician] - 4 Weeks Discharge Medications: New docusate sodium 100 mg Capsule 100 mg PO BID Qty: 60 0RF ibuprofen 600 mg Tablet 600 mg PO Q6H Qty: 40 0RF oxycodone 5 mg Tablet 5 mg PO Q4H PRN (Reason: Pain Rated 4-6) Qty: 18 0RF Continued levocetirizine [Xyzal] 5 mg tablet 5 mg PO DAILY calcium carbonate [Tums] 200 mg calcium (500 mg) tablet,chewable 200 mg PO BID albuterol sulfate 90 mcg/actuation HFA aerosol inhaler 2 inh inhalation Q4H PRN (Reason: shortness of breath or wheezing) Qty: 6.7 1RF famotidine [Pepcid] 20 mg tablet 20 mg PO DAILY Date of admission: 06/10/24 10:50 Primary Care Provider: Rhoda,Nighat Rao Admitting Provider: Jaymie Luis Attending physician on admission: Jyamie Luis Condition: Stable
[2024-06-13 09:00] VITALS: PULSE 88; RESP 18; O2SAT 97
[2024-06-13] MEDS: SIMETHICONE 80 MG TAB.CHEW PO (10:04)
[2024-06-13] MEDS: DOCUSATE SODIUM 100 MG CAPSULE PO (10:05)
--- NOTE | 2024-06-13 10:15 | PC.NURSE ---
Consulted with mother concerning needs and she shared her ability to independently pump and bottle feed. She is feeling some soreness with the pump. We discussed using the highest comfortable suction setting and she stated that she was starting on the highest suction and going down as needed. She understands the importance of using the pump comfortably and will adjust the suction accordingly. She has a Medela pump to use at home. She was measured for the 24mm flange and was asking about using the smaller size flange (21mm) because of the rubbing, but after examining her nipple, it appears the 24 is the correct size, the rubbing may be from the suction being too high. Discussed with patient it is normal to see stretching of the nipple in the flange tunnel (up to 2 inches). Mother is feeding appropriately for growth of infant and understands stimulating infant to eat if needed. Infant has had appropriate feedings in the last 24 hours meets the outcomes for weight, output, blood sugar and jaundice at this time. Reinforced understanding of milk production, transition of milk, signs of adequate intake, transition of stool, prevention/relief of engorgement, plugged ducts, mastitis, responsive watching for feeding cues, the different methods of stimulating infant to breastfeed 1-3 hours after the start of the last feeding, community resources, and when to call a provider using the resource of the feeding sheet along with the mom and baby guide. Encouraged consistency and sticking to a regular pumping schedule. Mother voiced understanding of the information shared, is confident to continue effectively pumping/feeding her infant at home, when to call for assistance, denies any additional assistance or education at this time. Reported to the Primary RN.
--- NOTE | 2024-06-13 12:45 | PC.NURSE ---
Patient viewed the discharge video Mother & Baby Care, The First Two Weeks . Patient was given the opportunity and encouraged to ask questions. Patient verbalized understanding of information shared and has been given the mother/baby guide for home reference.
[2024-06-15 09:15] VITALS: BP 115/82; PULSE 91; RESP 20; TEMP 36.6; O2SAT 99
== END 2024-06-13 13:43 | disposition home or self-care (01) | DRG 539 ==
LOC: ANHOBPP 11:05 → ANHOB2 17:28
PROVIDERS: Obstetrics & Gynecology; Admitting Provider Obstetrics & Gynecology; PCP Physician Assistant; Visit Provider Obstetrics & Gynecology
PROC: 10D00Z1 Extraction of Products of Conception, Low, Open Approach (ICD-10-PCS; CPT 59514; principal; 2024-06-10 12:00)
DX: O34.211 Maternal care for low transverse scar from previous cesarean delivery (principal); Z37.0 Single live birth; Z3A.36 36 weeks gestation of pregnancy; Z30.2 Encounter for sterilization; O99.214 Obesity complicating childbirth; R74.01 Elevation of levels of liver transaminase levels
CPT/HCPCS: 36415; 80053; 85025; 85027; 85384; 85610; 85730; 86592; 86703; 86850; 86900; 86901; 88302; 88307; A9270; G0432; J0690; J1200; J1885; J2270; J2274; J2371; J2405; J2590; J3010; J7120